=== PATIENT | female | born 1970 | race Caucasian/White ===

== ENCOUNTER 2017-05-17 09:26 | Inpatient (IN) | payer OTHER ==
[~2017-05-17] VITALS: Ht 157.5 cm; Wt 53.4 kg
[~2017-05-17 09:26] MED LIST: ATEN1TAB73 PO; Benztropine PO; CHOL1000 PO; METH10TA PO; METH5 PO; NICO21DI2 T-DERMAL; RISP1 PO
--- NOTE | 2017-05-17 09:32 | PD ---
HPI Chief Complaint: psychiatric symptoms Time Seen by Provider: 09:32 Travel History International Travel<30 days: No Contact w/Intl Traveler<30days: No History of Present Illness HPI 46-year-old female with history of bipolar disorder, is brought in under the Noble act, after threatening to kill herself with a knife earlier this morning. It is reported the patient has a history of methadone abuse, and is trying to wean herself off according to the Noble act note. Patient currently states that she is not suicidal but very anxious. She denies auditory or visual hallucinations. She denies alcohol or drug use. She does smoke 1/2-1 pack of cigarettes per day. Patient has no known drug allergies. PFSH Past Medical History Arthritis: No Asthma: No Autoimmune Disease: No Anxiety: No Depression: Yes Heart Rhythm Problems: No Cancer: No Cardiovascular Problems: No High Cholesterol: No Chemotherapy: No Chest Pain: No Congestive Heart Failure: No COPD: No Cerebrovascular Accident: No Diabetes: No Endocrine: No GERD: No Genitourinary: No Headaches: No Hiatal Hernia: No Immune Disorder: No Kidney Stones: No Musculoskeletal: No Neurologic: No Psychiatric: Yes (Depression/Bipolar) Reproductive: No Respiratory: No Migraines: No Radiation Therapy: No Renal Failure: No Seizures: No Sickle Cell Disease: No Sleep Apnea: No Thyroid Disease: No Ulcer: No Past Surgical History Abdominal Surgery: No AICD: No Arteriovenous Shunt: No Cardiac Surgery: No Ear Surgery: No Endocrine Surgery: No Eye Surgery: No Genitourinary Surgery: No Gynecologic Surgery: No Insulin Pump: No Joint Replacement: No Oral Surgery: No Pacemaker: No Thoracic Surgery: No Social History Alcohol Use: Yes Tobacco Use: Yes Substance Use: No Allergies-Medications (Allergen,Severity, Reaction): Coded Allergies: No Known Allergies (Verified Allergy, Unknown, 03/24/03) Reported Meds & Prescriptions Reported Meds & Active Scripts Active Gnp Vitamin D3 Extra Stre (Cholecalciferol) 1,000 Unit Tab 1,000 Units PO DAILY 15 Days [Benztropine] 1 MG Tab 1 Mg PO Q12HR PRN 15 Days Risperdal (Risperidone) 1 Mg Tab 2 Mg PO BID 15 Days Methadone (Methadone HCl) 10 Mg Tab 30 Mg PO DAILY 1 Days Order is to update med rec only. Pt in methadone program. Tapazole (Methimazole) 5 Mg Tab 5 Mg PO DAILY 15 Days Tenormin (Atenolol) 25 Mg Tab 25 Mg PO DAILY 15 Days Reported Nicotine Patch (Nicotine) 21 Mg/24 Hr Patch 21 Mg T-DERMAL DAILY Review of Systems Except as stated in HPI: all other systems reviewed are Neg General / Constitutional: No: Fever Eyes: No: Visual changes HENT: No: Headaches Cardiovascular: No: Chest Pain or Discomfort Respiratory: No: Shortness of Breath Gastrointestinal: No: Abdominal Pain Genitourinary: No: Dysuria Musculoskeletal: No: Pain Skin: No Rash Neurologic: No: Weakness Psychiatric: Positive: Anxiety, Suicidal Ideations, No: Depression, Homicidal Ideation Endocrine: No: Polydipsia Hematologic/Lymphatic: No: Easy Bruising Physical Exam Narrative GENERAL: Patient appears anxious but otherwise in no acute distress. SKIN: Warm and dry. Normal color. Normal turgor. HEAD: Atraumatic. Normocephalic. EYES: Pupils equal and round. No scleral icterus. No injection or drainage. ENT: No nasal bleeding or discharge. Mucous membranes pink and moist. Pharynx is clear. Airways patent NECK: Trachea midline. Supple CARDIOVASCULAR: Tachycardic rate and regular rhythm. RESPIRATORY: No accessory muscle use. Clear to auscultation. Breath sounds equal bilaterally. GASTROINTESTINAL: Abdomen soft, non-tender, nondistended. Hepatic and splenic margins not palpable. MUSCULOSKELETAL: Extremities without clubbing, cyanosis, or edema. No obvious deformities. NEUROLOGICAL: Awake and alert. No obvious cranial nerve deficits. Motor grossly within normal limits. Five out of 5 muscle strength in the arms and legs. Normal speech. PSYCHIATRIC: Appropriate mood and affect; insight and judgment normal. Data Data Last Documented VS Vital Signs Date Time Temp Pulse Resp B/P (MAP) Pulse Ox O2 Delivery O2 Flow Rate FiO2 05/17/17 09:37 98.2 118 22 117/71 (86) 98 Orders Orders Complete Blood Count With Diff (05/17/17 09:36) Comprehensive Metabolic Panel (05/17/17 09:36) Thyroid Stimulating Hormone (05/17/17 09:36) Urinalysis - C+S If Indicated (05/17/17 09:36) Ed Urine Pregnancytest Poc (05/17/17 09:36) Psych Screen (05/17/17 09:36) Drug Screen, Random Urine (05/17/17 09:36) Alcohol (Ethanol) (05/17/17 09:36) Lorazepam (Ativan) (05/17/17 09:45) Nicotine 21 Mg Patch.24 Hr (Habitrol 21 (05/17/17 09:45) Labs Laboratory Tests Test 3 09:57 White Blood Count 18.6 TH/MM3 Red Blood Count 4.39 MIL/MM3 Hemoglobin 14.5 GM/DL Hematocrit 41.6 % Mean Corpuscular Volume 94.8 FL Mean Corpuscular Hemoglobin 33.0 PG Mean Corpuscular Hemoglobin Concent 34.8 % Red Cell Distribution Width 14.2 % Platelet Count 282 TH/MM3 Mean Platelet Volume 8.3 FL Neutrophils (%) (Auto) 83.8 % Lymphocytes (%) (Auto) 11.7 % Monocytes (%) (Auto) 4.3 % Eosinophils (%) (Auto) 0.1 % Basophils (%) (Auto) 0.1 % Neutrophils # (Auto) 15.6 TH/MM3 Lymphocytes # (Auto) 2.2 TH/MM3 Monocytes # (Auto) 0.8 TH/MM3 Eosinophils # (Auto) 0.0 TH/MM3 Basophils # (Auto) 0.0 TH/MM3 CBC Comment DIFF FINAL Differential Comment Urine Color LIGHT-YELLOW Urine Turbidity CLEAR Urine pH 7.0 Urine Specific [place] 1.005 Urine Protein NEG mg/dL Urine Glucose (UA) NEG mg/dL Urine Ketones NEG mg/dL Urine Occult Blood TRACE Urine Nitrite NEG Urine Bilirubin NEG Urine Urobilinogen LESS THAN 2.0 MG/DL Urine Leukocyte Esterase TRACE Urine RBC 1 /hpf Urine WBC 2 /hpf Urine Squamous Epithelial Cells 6 /hpf Urine Bacteria RARE /hpf Urine Mucus FEW /lpf Microscopic Urinalysis Comment CULT NOT INDICATED Blood Urea Nitrogen 7 MG/DL Creatinine 0.58 MG/DL Random Glucose 75 MG/DL Total Protein 7.6 GM/DL Albumin 2.8 GM/DL Calcium Level 8.6 MG/DL Alkaline Phosphatase 72 U/L Aspartate Amino Transf (AST/SGOT) 18 U/L Alanine Aminotransferase (ALT/SGPT) 11 U/L Total Bilirubin 0.1 MG/DL Sodium Level 138 MEQ/L Potassium Level 4.0 MEQ/L Chloride Level 108 MEQ/L Carbon Dioxide Level 19.9 MEQ/L Anion Gap 10 MEQ/L Estimat Glomerular Filtration Rate 113 ML/MIN Thyroid Stimulating Hormone 3rd Gen 0.012 uIU/ML Urine Opiates Screen NEG Urine Barbiturates Screen NEG Urine Amphetamines Screen NEG Urine Benzodiazepines Screen NEG Urine Cocaine Screen NEG Urine Cannabinoids Screen NEG Ethyl Alcohol Level 39 MG/DL MDM Medical Decision Making Medical Screen Exam Complete: Yes Emergency Medical Condition: Yes Differential Diagnosis Noble act. Suicidal ideation. History of bipolar disorder. Narrative Course Psychiatric labs ordered as per protocol including urinary test. Patient is given 2 mg lorazepam p.o. Patient is given nicotine patch 21 mcg daily. CBC is remarkable for 18.6 leukocytosis. Chemistry unremarkable except for chloride of 108, and carbon dioxide of 19.9. Albumin is low at 2.8. TSH is 0.012. Toxicology is negative except for an alcohol of 39. Urinalysis is otherwise unremarkable. Patient is medically cleared for psychiatric evaluation. Condition: Stable Rainer Moses May 17, 2017 09:32
[2017-05-17 09:37] VITALS: BP 117/71; PULSE 118; RESP 22; TEMP 98.2; O2SAT 98
[2017-05-17] MEDS ORDERED: LORazepam 2 MG TAB PO ONE (09:45)
[2017-05-17] MEDS ORDERED: NICOTINE 21 MG/24 HR PATCH T-DERMAL ONE (09:45)
[2017-05-17 10:27] LABS: BACTERIA, URINE RARE /hpf; BILIRUBIN, URINE NEG (NEG); BLOOD, URINE TRACE (NEG); GLUCOSE,URINE NEG (NEG); KETONE, URINE NEG (NEG); MUCUS URINE FEW /lpf (OCC); NITRITE,URINE NEG (NEG); SQUAMOUS EPITHELIAL CELL URINE 6 /hpf (0-5); URINE COLOR LIGHT-YELLOW (YELLW/STRAW); URINE LEUKOCYTE ESTERASE TRACE (NEG)
[2017-05-17 10:37] LABS: AUTOMATED NEUTROPHIL # 15.6 TH/MM3 (1.8-7.7); BASOPHIL % 0.1 % (0.0-2.0); EOSINOPHIL % 0.1 % (0.0-4.0); HEMATOCRIT 41.6 % (35.0-46.0); HEMOGLOBIN 14.5 GM/DL (11.6-15.3); LYMPH % 11.7 % (9.0-44.0); LYMPHOCYTE # 2.2 TH/MM3 (1.0-4.8); MEAN CELL VOLUME 94.8 FL (80.0-100.0); MEAN CORPUSCULAR HGB CONC 34.8 % (32.0-36.0); MEAN PLATELET VOLUME 8.3 FL (7.0-11.0); MONO % 4.3 % (0.0-8.0); MONOCYTE # 0.8 TH/MM3 (0-0.9); NEUT % 83.8 % (16.0-70.0); PLATELET COUNT 282 TH/MM3 (150-450); RED BLOOD COUNT 4.39 MIL/MM3 (4.00-5.30); RED CELL DISTRIBUTION WIDTH 14.2 % (11.6-17.2); WHITE BLOOD COUNT 18.6 TH/MM3 (4.0-11.0)
[2017-05-17 11:01] LABS: ALBUMIN 2.8 GM/DL (3.4-5.0); AST (GOT) 18 U/L (15-37); BICARBONATE 19.9 MEQ/L (21.0-32.0); BLOOD UREA NITROGEN 7 MG/DL (7-18); CALCIUM 8.6 MG/DL (8.5-10.1); CHLORIDE 108 MEQ/L (98-107); CREATININE 0.58 MG/DL (0.50-1.00); GLOMERULAR FILTRATION RATE 113 ML/MIN (>89); GLUCOSE,RANDOM 75 MG/DL (74-106); SODIUM (NA) 138 MEQ/L (136-145)
[2017-05-17 11:10] LABS: ALKALINE PHOSPHATASE 72 U/L (45-117); ALT (GPT) 11 U/L (10-53); TOTAL BILIRUBIN ADULT 0.1 MG/DL (0.2-1.0); TOTAL PROTEIN 7.6 GM/DL (6.4-8.2)
[2017-05-17 12:26] VITALS: BP 100/61; PULSE 124; RESP 18; TEMP 98.2; O2SAT 98
[2017-05-17 19:25] VITALS: BP 102/61; PULSE 94; RESP 18; O2SAT 98
[2017-05-18 02:10] VITALS: BP 93/50; PULSE 88; RESP 16; O2SAT 96
[2017-05-18 06:30] VITALS: BP 104/54; PULSE 101; RESP 18; O2SAT 98
[2017-05-18 10:48] VITALS: BP 104/60; PULSE 100; RESP 18
[2017-05-18] MEDS ORDERED: METH5SOL11 PO (11:33)
[2017-05-18] MEDS ORDERED: ACETAMINOPHEN 325 MG TAB PO PRN (12:45)
[2017-05-18] MEDS ORDERED: ALUMINUM/MAGNESIUM/SIMETH 30 ML CUP PO PRN (12:45)
[2017-05-18] MEDS ORDERED: LORazepam 0.5 MG TAB PO PRN (12:45)
[2017-05-18] MEDS ORDERED: MAGNESIUM HYDROXIDE SUSP 30 ML CUP PO PRN (12:45)
[2017-05-18] MEDS ORDERED: LORazepam 2 MG/ML VIAL IM PRN ×2 (12:45)
--- NOTE | 2017-05-18 14:10 | HHI.HP ---
Provisional Diagnosis Admission Date May 18, 2017 at 12:38 [place] I. Bipolar disorder, depressive episode, opiate use disorder of methadone 7 mg [place] II. Deferred [place] III. No significant medical history Certification of Person's Competence To Provide Express and Informed Consent I have personally examined Fanny Campos , a person being served at [facility] on, May 18, 2017 13:57. Express and informed consent means consent voluntarily given in writing, by a competent person, after sufficient explanation and disclosure of the subject matter involved to enable the person to make a knowing and willful decision without any element of force, fraud, deceit, duress, or other form of constraint or coercion. This person is 18 years of age or older, is not now known to be incompetent to consent to treatment with a guardian advocate, and does not have a health care surrogate or proxy currently making medical treatment decisions. I have found this person to be one of the following: [] Competent to provide express and informed consent, as defined above, for voluntary admission to this facility and is competent to provide express and informed consent for treatment. He/she has the consistent capacity to make well reasoned, willful, and knowing decisions concerning his or her medical or mental health treatment. The person fully and consistently understands the purpose of the admission for examination/placement and is fully capable of personally exercising all rights assured [place] [] Incompetent to provide express and informed consent to voluntary admission, and this is incompetent to provide express and informed consent to treatment. The person must be transferred to involuntary status and a petition for a guardian advocate filed with the Circuit Court. [x] Refusing to provide express and informed consent to voluntary admission but is competent to provide express and informed consent for treatment. The person must be discharged or transferred to involuntary status. Form shall be completed within 24 hours of a person's arrival at the receiving facility and filed in the clinical record of each person: 1. Admitted on a voluntary basis 2. Permitted to provide express and informed consent to his/her own treatment 3. Allowed to transfer from involuntary to voluntary status 4. Prior to permitting a person to consent to his or her own treatment after having been previously found incompetent to consent to treatment. History of Present Illness Capacity: Has Capacity HPI The patient is a 46-year-old woman, domiciled with her parents , but , unemployed, with psychiatric history of bipolar disorder, 2 previous psychiatric hospitalizations, last hospitalization was here in [place] in 2017, documentation review, outpatient care in [facility], she is on Risperdal 2 mg twice a day, she also has history of opiate use disorder on maternal 7 mg, this dose was confirmed, previous suicidal attempts, no significant medical history, who was brought in under the Noble act, after threatening to kill herself with a knife earlier this morning. It is reported that her parents the patient has a history of methadone abuse, and is trying to wean herself off according to the Noble act note. On psychiatric evaluation today the patient is guarded, oddly related, she seems to be kind of internally preoccupied, she says that she has been very depressed, frustrated with her parents, but she will not elaborate about circumstances and reason for her frustration. She does says that she has been having persistent suicidal thoughts with a plan of hanging herself or stabbing herself. She reports that she has been using her methadone as prescribed and she denies being abusive. He denies the abuse of other drugs and alcohol. The patient reports decreased concentration, energy, poor sleep at night, and she denies suicidal ideation with the plan of hanging herself or stabbing herself. She denies visual and auditory hallucinations. There is no loosening of associations ideas of reference, disorganized speech or behavior at this moment. Review of Systems Constitutional: DENIES: Diaphoretic episodes, Fatigue, Fever, Weight gain, Weight loss, Chills, Dizziness, Change in appetite, Night Sweats Endocrine: DENIES: Abnorml menstrual pattern, Heat/cold intolerance, Polydipsia , Polyuria, Polyphagia Eyes: DENIES: Blurred vision, Diplopia, Eye inflammation, Eye pain, Vision loss , Photosensitivity, Double Vision Ears, nose, mouth, throat: DENIES: Tinnitus, Hearing loss, Vertigo, Nasal discharge, Oral lesions, Throat pain, Hoarseness, Ear Pain, Running Nose, Epistaxis, Sinus Pain, Toothache, Odynophagia Respiratory: DENIES: Apneas, Cough, Snoring, Wheezing, Hemoptysis, Sputum production, Shortness of breath Cardiovascular: DENIES: Chest pain, Palpitations, Syncope, Dyspnea on Exertion , PND, Lower Extremity Edema, Orthopnea, Claudication Gastrointestinal: DENIES: Abdominal pain, Black stools, Bloody stools, Constipation, Diarrhea, Nausea, Vomiting, Difficulty Swallowing, Anorexia Genitourinary: DENIES: Abnormal vaginal bleeding, Dysmenorrhea, Dyspareunia, Sexual dysfunction, Urinary frequency, Urinary incontinence, Urgency, Hematuria , Dysuria, Nocturia, Vaginal discharge Musculoskeletal: DENIES: Joint pain, Muscle aches, Stiffness, Joint Swelling, Back pain, Neck pain Integumentary: DENIES: Abnormal pigmentation, Pruritus, Rash, Nail changes, Breast masses, Breast skin changes, Nipple discharge Hematologic/lymphatic: DENIES: Bruising, Lymphadenopathy Immunologic/allergic: DENIES: Eczema, Urticaria Neurologic: DENIES: Abnormal gait, Headache, Localized weakness, Paresthesias, Seizures, Speech Problems, Tremor, Poor Balance Psychiatric: COMPLAINS OF: Depression, DENIES: Anxiety, Confusion, Mood changes , Hallucinations, Agitation, Suicidal Ideation, Homicidal Ideation Past Psych History Violence risk - self (6 mos) Elevated Substance Abuse History Drugs/Alcohol past 12 months Methadone 7 mg daily Past Family Social History Coded Allergies: No Known Allergies (Verified Allergy, Unknown, 03/24/03) Reported Medications Methadone Liq (Methadone Liq) 1 Mg/Ml Liqd, 7 MG PO DAILY, ML 0 Refills 05/18/17 Discontinued Reported Medications Nicotine Patch (Nicotine Patch) 21 Mg/24 Hr Patch, 21 MG T-DERMAL DAILY for Smoking Cessation, #30 PATCH 0 Refills 03/20/17 Discontinued Scripts Cholecalciferol (Gnp Vitamin D3 Extra Stre) 1,000 Unit Tab, 1000 UNITS PO DAILY for Vitamin D for 15 Days, TAB 1 Refill Prov:Ronnie Rincon MD 03/23/17 [Benztropine] 1 MG TAB No Conflict Check, 1 MG PO Q12HR Y for EXTRA PYRAMIDAL SYMPTOMS for 15 Days, 1 Refill Prov:Ronnie Rincon MD 03/23/17 Risperidone (Risperdal) 1 Mg Tab, 2 MG PO BID for Mental Health for 15 Days, # 60 TAB 1 Refill Prov:Ronnie Rincon MD 03/23/17 Methadone (Methadone) 10 Mg Tab, 30 MG PO DAILY for Methadone maintenance for 1 Day, #3 TAB 0 Refills Order is to update med rec only. Pt in methadone program. Prov:Ronnie Rincon MD 03/23/17 Methimazole (Tapazole) 5 Mg Tab, 5 MG PO DAILY for Thyroid for 15 Days, #15 TAB 1 Refill Prov:Ronnie Rincon MD 03/23/17 Atenolol (Tenormin) 25 Mg Tab, 25 MG PO DAILY for hyperthyroid for 15 Days, #15 TAB 1 Refill Prov:Ronnie Rincon MD 03/23/17 Current Medications Medications (Trade) Dose Ordered Sig/Dilcia Route Start Time Stop Time Status Last Admin (Methadone Liq) 7 mg DAILY PO 05/19/17 09:00 UNV (risperDAL) 1 mg Q12HR PO 05/18/17 12:45 UNV (Zoloft) 25 mg DAILY PO 05/18/17 12:45 UNV (Ativan) 1 mg Q6H PRN PO 05/18/17 12:45 UNV (Ativan Inj) 1 mg Q6H PRN IM 05/18/17 12:45 UNV (Ativan) 0.5 mg Q12H PRN PO 05/18/17 12:45 UNV (Ativan Inj) 0.5 mg Q12H PRN IM 05/18/17 12:45 UNV (Tylenol) 650 mg Q4H PRN PO 05/18/17 12:45 UNV (Milk Of Magnesia Liq) 30 ml DAILY PRN PO 05/18/17 12:45 UNV (Mag-Al Plus Susp Liq) 30 ml Q6H PRN PO 05/18/17 12:45 UNV (Habitrol 21 Mg Patch.24 Hr) 1 patch DAILY T-DERMAL 05/19/17 09:00 UNV Family Psych History No family psychiatric history Social History Patient is domiciled with her parents, unemployed, but , no kids, unemployed, her highest level of education is 10th grade Patient's Strengths (min. 2) Family support Physical Exam No tremors, no EPS, no psychomotor agitation or retardation Vital Signs Vital Signs Date Time Temp Pulse Resp B/P (MAP) Pulse Ox O2 Delivery O2 Flow Rate FiO2 05/18/17 10:48 100 18 104/60 (75) Room Air 05/18/17 06:30 98 05/17/17 12:26 98.2 Mental Status Examination Appearance: Appropriate Consciousness: Alert Orientation: x4 Motor Activity: Normal gait Speech: Unremarkable Language: Adequate Fund of Knowledge: Adequate Attention and Concentration: Adequate Memory: Unremarkable Mood: Sad Affect: Irritable, Sad Thought Process & Associations: Intact Thought Content: Appropriate Hallucination Type: None Delusion Type: None Suicidal Ideation: Yes Suicidal Plan: Yes Suicidal Intention: No Homicidal Ideation: No Homicidal Plan: No Homicidal Intention: No Insight: Poor Judgment: Poor Assessment & Plan Problem List: (1) Bipolar depression ICD Codes: F31.30 - Bipolar disorder, current episode depressed, mild or moderate severity, unspecified Assessment & Plan: On psychiatric evaluation today the patient is guarded, irritable, provisionally cooperative, she does reports symptoms of depression, anhedonia, hopelessness, helplessness, poor sleep, concentration and energy, and persistent suicidal ideation with a plan of stabbing herself. The patient was recently found with a knife in his hands by her parents and was immediately sent to the hospital. Due to her previous psychiatric history, previous suicidal attempts, the patient is an elevated risk of danger to self and she denies psychiatric admission for stabilization. Transfer patient to psychiatric unit. We'll start Zoloft 25 mg for depression, restart her Risperdal 1 mg twice a day, methadone 7 mg daily. Brief supportive psychotherapy, psychoeducation and motivation provided. 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 Individual and group therapy, to coordinating a safe discharge. Will consult psychiatry for second opinion. Assessment & Plan Estimated LOS: Vj Reeves MD May 18, 2017 14:10
[2017-05-18] MEDS: risperiDONE 1 MG TAB PO SCH ×2 (14:30→21:08)
[2017-05-18] MEDS: SERTRALINE HCL 50 MG TAB PO SCH (14:30)
[2017-05-18 15:35] VITALS: BP 119/83; PULSE 93; RESP 16; TEMP 97.5
[2017-05-18] MEDS: LORazepam 1 MG TAB PO PRN (21:08)
[2017-05-19 05:29] VITALS: BP 100/55; PULSE 99; RESP 18; TEMP 97.4; O2SAT 97
[2017-05-19] MEDS: risperiDONE 1 MG TAB PO SCH ×2 (09:10→21:58)
[2017-05-19] MEDS: SERTRALINE HCL 50 MG TAB PO SCH (09:11)
[2017-05-19] MEDS: NICOTINE 21 MG/24 HR PATCH T-DERMAL SCH (09:11)
[2017-05-19 09:57] LABS: BICARBONATE 25.8 MEQ/L (21.0-32.0); BLOOD UREA NITROGEN 12 MG/DL (7-18); CALCIUM 9.1 MG/DL (8.5-10.1); CHLORIDE 103 MEQ/L (98-107); CREATININE 0.66 MG/DL (0.50-1.00); GLOMERULAR FILTRATION RATE 97 ML/MIN (>89); GLUCOSE,RANDOM 101 MG/DL (74-106); SODIUM (NA) 138 MEQ/L (136-145)
[2017-05-19 09:58] LABS: CHOLESTEROL 185 MG/DL (120-200); TRIGLYCERIDES 84 MG/DL (42-150)
[2017-05-19 10:01] LABS: CHOLESTEROL/ HDL RATIO 3.36 RATIO; LDL CHOLESTEROL 113 MG/DL (0-99)
[2017-05-19] MEDS: METHADONE HCL 10 MG/10 ML ORAL SOLUTION PO SCH (10:21)
[2017-05-19 11:56] LABS: HEMOGLOBIN A1C 5.9 % (4.3-6.0)
--- NOTE | 2017-05-19 13:16 | HHI.PYPN ---
Subjective Remarks This a request for second opinion. Admission note was reviewed and I agree with its contents. Patient is pleasant and cooperative with exam. Insight is for concerning her admission. She now minimizes her suicidal ideation. Today she denies suicidal homicidal ideation intent or plan. Affect is quite anxious. His compliant with her medications and tolerating them well Mental Status Examination Appearance: Appropriate Consciousness: Alert Orientation: x4 Motor Activity: Normal gait Speech: Unremarkable Language: Adequate Fund of Knowledge: Adequate Attention and Concentration: Adequate Memory: Unremarkable Mood: Sad Affect: Sad, Blunt Thought Process & Associations: Intact Thought Content: Appropriate Hallucination Type: None Delusion Type: None Suicidal Ideation: No Suicidal Plan: No Suicidal Intention: No Homicidal Ideation: No Homicidal Plan: No Homicidal Intention: No Insight: Poor Judgment: Poor Results Labs Test 05/19/17 08:15 Blood Urea Nitrogen 12 MG/DL Creatinine 0.66 MG/DL Random Glucose 101 MG/DL Calcium Level 9.1 MG/DL Sodium Level 138 MEQ/L Potassium Level 3.8 MEQ/L Chloride Level 103 MEQ/L Carbon Dioxide Level 25.8 MEQ/L Anion Gap 9 MEQ/L Estimat Glomerular Filtration Rate 97 ML/MIN Hemoglobin A1c 5.9 % Triglycerides Level 84 MG/DL Cholesterol Level 185 MG/DL LDL Cholesterol 113 MG/DL HDL Cholesterol 55.0 MG/DL Cholesterol/HDL Ratio 3.36 RATIO Vitals/IOs Vital Signs Date Time Temp Pulse Resp B/P (MAP) Pulse Ox O2 Delivery O2 Flow Rate FiO2 05/19/17 05:29 97.4 99 18 100/55 (70) 97 05/18/17 10:48 Room Air Assessment & Plan Problem List: (1) Bipolar depression ICD Codes: F31.30 - Bipolar disorder, current episode depressed, mild or moderate severity, unspecified Assessment & Plan I reviewed first opinion to continue petition. Criteria include suicidal ideation Justification for Cont. Inpt. Patient would decompensate in a less restrictive setting Ramone Henning DO May 19, 2017 13:16
[2017-05-19 18:19] VITALS: BP 103/64; PULSE 92; RESP 20; TEMP 97.9; O2SAT 99
[2017-05-19] MEDS: REMOVE OLD NICODERM (NICOTINE) PATCH T-DERMAL SCH (21:00)
[2017-05-19] MEDS: LORazepam 1 MG TAB PO PRN (21:58)
[2017-05-20 04:54] VITALS: BP 106/72; PULSE 94; RESP 16; TEMP 97.6; O2SAT 98
[2017-05-20] MEDS: risperiDONE 1 MG TAB PO SCH ×2 (08:36→21:18)
[2017-05-20] MEDS: METHADONE HCL 10 MG/10 ML ORAL SOLUTION PO SCH (08:39)
[2017-05-20] MEDS: SERTRALINE HCL 50 MG TAB PO SCH (08:42)
[2017-05-20] MEDS: NICOTINE 21 MG/24 HR PATCH T-DERMAL SCH (08:43)
--- NOTE | 2017-05-20 11:21 | HHI.PYPN ---
Subjective Remarks Patient was seen and case discussed with nursing. Patient continues to minimize her reasons for admission. She is perseverant on discharge and is a blunted affect. Denies suicidal or homicidal ideation intent or plan. Largely seclusive to self. Mental Status Examination Appearance: Appropriate Consciousness: Alert Orientation: x4 Motor Activity: Normal gait Speech: Unremarkable Language: Adequate Fund of Knowledge: Adequate Attention and Concentration: Adequate Memory: Unremarkable Mood: Sad Affect: Sad, Blunt Thought Process & Associations: Intact Thought Content: Appropriate Hallucination Type: None Delusion Type: None Suicidal Ideation: No Suicidal Plan: No Suicidal Intention: No Homicidal Ideation: No Homicidal Plan: No Homicidal Intention: No Insight: Poor Judgment: Poor Results Vitals/IOs Vital Signs Date Time Temp Pulse Resp B/P (MAP) Pulse Ox O2 Delivery O2 Flow Rate FiO2 05/20/17 09:59 16 05/20/17 04:54 97.6 94 106/72 (83) 98 05/18/17 10:48 Room Air Assessment & Plan Problem List: (1) Bipolar depression ICD Codes: F31.30 - Bipolar disorder, current episode depressed, mild or moderate severity, unspecified Assessment & Plan Continue current treatment plan Justification for Cont. Inpt. Patient will decompensate in a less restrictive setting Ramone Henning DO May 20, 2017 11:21
[2017-05-20 16:46] VITALS: BP 120/96; PULSE 88; RESP 18; TEMP 98; O2SAT 98
[2017-05-20] MEDS: REMOVE OLD NICODERM (NICOTINE) PATCH T-DERMAL SCH (21:00)
[2017-05-20] MEDS: LORazepam 1 MG TAB PO PRN (21:18)
[2017-05-21 05:32] VITALS: BP 108/66; PULSE 72; RESP 16; TEMP 97.6; O2SAT 97
[2017-05-21] MEDS: SERTRALINE HCL 50 MG TAB PO SCH (08:26)
[2017-05-21] MEDS: risperiDONE 1 MG TAB PO SCH ×2 (08:26→21:18)
[2017-05-21] MEDS: METHADONE HCL 10 MG/10 ML ORAL SOLUTION PO SCH (08:26)
[2017-05-21] MEDS: NICOTINE 21 MG/24 HR PATCH T-DERMAL SCH (08:27)
--- NOTE | 2017-05-21 13:20 | HHI.PYPN ---
Subjective Remarks Patient seen and examined with nurse. Chart reviewed. Case discussed with nursing staff. No behavioral issues noted. Case discussed with counselor who will obtain collateral information from the patient's parents. On my examination today, the patient denies any ongoing suicidal ideation. Of her presenting suicidal threats she says "I was just having a depressed day." Mood is improved presently. Denies AVH. No delusional material elicited. Denies side effects from medications. No physical complaints. Hopeful for discharge soon. Review of Systems Except as stated in HPI: all other systems reviewed are Neg Mental Status Examination Appearance: Appropriate Consciousness: Alert Orientation: x4 Motor Activity: Normal gait, Other (no motor abnormalities noted. No signs of withdrawal noted.) Speech: Unremarkable Language: Adequate Fund of Knowledge: Adequate Attention and Concentration: Adequate Memory: Unremarkable Mood: Appropriate Affect: Blunt Thought Process & Associations: Intact, Logical, Linear Thought Content: Appropriate Hallucination Type: None Delusion Type: None Suicidal Ideation: No Suicidal Plan: No Suicidal Intention: No Homicidal Ideation: No Homicidal Plan: No Homicidal Intention: No Mental Status Exam Remarks Insight and judgment are fair at best Results Labs Labs reviewed. Leukocytosis noted. Low TSH noted. Vitals/IOs Vital Signs Date Time Temp Pulse Resp B/P (MAP) Pulse Ox O2 Delivery O2 Flow Rate FiO2 05/21/17 05:32 97.6 72 16 108/66 (80) 97 05/18/17 10:48 Room Air Assessment & Plan Problem List: (1) Adjustment disorder with depressed mood ICD Codes: F43.21 - Adjustment disorder with depressed mood (2) Opiate dependence ICD Codes: F11.20 - Opioid dependence, uncomplicated Assessment & Plan Continue Risperdal and Zoloft as ordered. Continue methadone as ordered. Check free T4 and CBC to follow up abnormal TSH and leukocytosis, respectively. Consult hospitalist for further evaluation and management of these issues. Continue to monitor on the inpatient unit. Continue other medications and care as ordered. Justification for Cont. Inpt. Monitoring for impairment in safety. Complicating conditions. Discharge Planning Pending outcome of observation. Case discussed with counselor. Request HC Surrog/Guard Advoc?: No Ronnie Rincon MD May 21, 2017 13:20
[2017-05-21 17:44] VITALS: BP 100/58; PULSE 79; RESP 16; TEMP 97.7; O2SAT 97
[2017-05-21] MEDS: REMOVE OLD NICODERM (NICOTINE) PATCH T-DERMAL SCH (21:00)
[2017-05-21] MEDS: LORazepam 1 MG TAB PO PRN (21:18)
[2017-05-22 06:01] VITALS: BP 95/63; PULSE 79; RESP 16; TEMP 97.6
[2017-05-22] MEDS: NICOTINE 21 MG/24 HR PATCH T-DERMAL SCH (08:19)
[2017-05-22] MEDS: SERTRALINE HCL 50 MG TAB PO SCH (08:19)
[2017-05-22] MEDS: METHADONE HCL 10 MG/10 ML ORAL SOLUTION PO SCH (08:19)
[2017-05-22] MEDS: risperiDONE 1 MG TAB PO SCH (08:19)
[2017-05-22 08:52] LABS: AUTOMATED NEUTROPHIL # 4.9 TH/MM3 (1.8-7.7); BASOPHIL % 0.4 % (0.0-2.0); EOSINOPHIL # 0.1 TH/MM3 (0-0.4); EOSINOPHIL % 0.9 % (0.0-4.0); HEMATOCRIT 41.1 % (35.0-46.0); HEMOGLOBIN 13.9 GM/DL (11.6-15.3); LYMPH % 29.2 % (9.0-44.0); LYMPHOCYTE # 2.3 TH/MM3 (1.0-4.8); MEAN CELL VOLUME 93.1 FL (80.0-100.0); MEAN CORPUSCULAR HEMOGLOBIN 31.6 PG (27.0-34.0); MEAN CORPUSCULAR HGB CONC 33.9 % (32.0-36.0); MEAN PLATELET VOLUME 9.2 FL (7.0-11.0); MONO % 5.7 % (0.0-8.0); MONOCYTE # 0.4 TH/MM3 (0-0.9); NEUT % 63.8 % (16.0-70.0); PLATELET COUNT 280 TH/MM3 (150-450); RED BLOOD COUNT 4.41 MIL/MM3 (4.00-5.30); RED CELL DISTRIBUTION WIDTH 13.7 % (11.6-17.2); WHITE BLOOD COUNT 7.7 TH/MM3 (4.0-11.0)
[2017-05-22] MEDS ORDERED: ZOLO50TA PO (11:19)
[2017-05-22] MEDS ORDERED: RISP1 PO (11:19)
--- NOTE | 2017-05-22 11:19 | HHI.DS ---
Psychiatry Discharge Summary Inpatient Psychiatric care?: Yes Advance Directive: No Reason Not Provided: Due to Patient Condition Mental Health AdvanceDirective: No Health Care Proxy: No Admission Admission Date May 18, 2017 at 12:38 Admission Diagnosis: (1) Bipolar depression ICD Code: F31.30 - Bipolar disorder, current episode depressed, mild or moderate severity, unspecified Brief History The patient is a 46-year-old woman, domiciled with her parents , but , unemployed, with psychiatric history of bipolar disorder, 2 previous psychiatric hospitalizations, last hospitalization was here in [place] in 2017, documentation review, outpatient care in [facility], she is on Risperdal 2 mg twice a day, she also has history of opiate use disorder on maternal 7 mg, this dose was confirmed, previous suicidal attempts, no significant medical history, who was brought in under the Noble act, after threatening to kill herself with a knife earlier this morning. It is reported that her parents the patient has a history of methadone abuse, and is trying to wean herself off according to the Noble act note. On psychiatric evaluation today the patient is guarded, oddly related, she seems to be kind of internally preoccupied, she says that she has been very depressed, frustrated with her parents, but she will not elaborate about circumstances and reason for her frustration. She does says that she has been having persistent suicidal thoughts with a plan of hanging herself or stabbing herself. She reports that she has been using her methadone as prescribed and she denies being abusive. He denies the abuse of other drugs and alcohol. The patient reports decreased concentration, energy, poor sleep at night, and she denies suicidal ideation with the plan of hanging herself or stabbing herself. She denies visual and auditory hallucinations. There is no loosening of associations ideas of reference, disorganized speech or behavior at this moment. Tobacco Use In Past 30 Days: 5 or More Cigarettes/Day Alcohol Use: Never Hospital Course Patient was admitted to a locked, inpatient psychiatric unit. General medical consultation was obtained. Appropriate precautions were in place throughout patient's hospital stay. Patient was seen and examined on the unit by psychiatry and also visited by counselor. Psychotropic medications were adjusted. Patient tolerated medications well without side effects. Patient had improvement in presenting psychiatric symptomatology during the course of hospital stay. There was no evidence of any suicidality or homicidality on the inpatient unit. Patient remained in good behavioral control. On the day of discharge: Patient seen and examined with nurse. Chart reviewed. Case discussed with nursing staff. No behavioral issues noted overnight. Case discussed in treatment team. Counselor has reached out the patient's parents who reportedly have no safety concerns about patient being discharged home today. On my examination today, the patient is requesting discharge from the inpatient psychiatric unit today. She denies any suicidal or homicidal ideation , intent or plan on direct questioning and contracts for safety. She is in good spirits and I can elicit no depressive or hypomanic/manic symptoms presently. She denies any audiovisual hallucinations. I can elicit no delusional beliefs. There is no evidence of any impairment in reality construction. She denies side effects from medications. I did offer the patient long-acting injectable antipsychotic but she has declined. She has no physical complaints. Suicide and violence risk assessment on day of discharge both suggest lower imminent risk from a mental illness as defined under the Noble act, and the patient's level of function is adequate for outpatient care. The patient no longer meets criteria for involuntary psychiatric hospitalization. She is requesting discharge from the inpatient psychiatric unit today, and I have no basis to retain her over her objection. Patient will be discharged home today with psychiatric follow-up as arranged by counselor. Patient is also to follow-up with primary care. I have counseled the patient to abstain from substances of abuse and continue chemical dependency treatment on an outpatient basis. I have counseled the patient regarding warning signs for need to return to the psychiatric emergency room as part of a general safety plan. Results Blood Pressure 95 / 63 Vital Signs Date Time Temp Pulse Resp B/P (MAP) Pulse Ox O2 Delivery O2 Flow Rate FiO2 05/22/17 06:01 97.6 79 16 95/63 (74) 05/21/17 17:44 97 05/18/17 10:48 Room Air Laboratory Tests Test 05/22/17 08:05 05/22/17 08:15 Laboratory Results Test 05/19/17 08:15 Cholesterol Level 185 MG/DL (120-200) HDL Cholesterol 55.0 MG/DL (40.0-60.0) Hemoglobin A1c 5.9 % (4.3-6.0) LDL Cholesterol 113 MG/DL (0-99) Triglycerides Level 84 MG/DL (42-150) Summary of Major Lab Results Free T4 wnl. Summary of Procedures None done Imaging None done Pending results at discharge: No Medications # of Antipsychotic meds at D/C: 1 Approp Antipsych med options 1 - Minimum of three failed multiple trials of monotherapy. 2 - Documented plan to taper to monotherapy due to previous use of multiple meds OR cross-taper in progress at D/C. 3 - Documentation of augmentation of Clozapine. 4 - Justification other than those listed in allowable values 1-3, document here : Discharge Discharge Date: May 22, 2017 Discharge Diagnosis: (1) Adjustment disorder with depressed mood Diagnosis: Principal (resolved) ICD Code: F43.21 - Adjustment disorder with depressed mood (2) Opiate dependence Diagnosis: Secondary ICD Code: F11.20 - Opioid dependence, uncomplicated Pt Condition on Discharge: Stable Discharge Disposition: Discharge Home Discharge Instructions Diet Instructions: As Tolerated, No Restrictions Activities you can perform: Weight Bearing as Christofer Scheduled Appointment: Ross Chen Appointment Date: Jun 07, 2017 Appointment Time: 1:30 p.m. New Medications: Risperidone (Risperdal) 1 Mg Tab 1 MG PO Q12HR for Mental Health for 10 Days, TAB 2 Refills Sertraline (Zoloft) 50 Mg Tab 25 MG PO DAILY for Mental Health for 10 Days, #5 TAB 2 Refills Continued Medications: Methadone Liq (Methadone Liq) 1 Mg/Ml Liqd 7 MG PO DAILY, ML 0 Refills Discharge Time <= 30 minutes Mental Status Examination Appearance: Appropriate Consciousness: Alert Orientation: x4 Motor Activity: Normal gait, Other (no signs of withdrawal noted. No motor abnormalities noted.) Speech: Unremarkable Language: Adequate Fund of Knowledge: Adequate Attention and Concentration: Adequate Memory: Unremarkable Mood: Appropriate Affect: Appropriate Thought Process & Associations: Intact, Logical, Goal directed, Linear Thought Content: Appropriate Hallucination Type: None Delusion Type: None Suicidal Ideation: No Suicidal Plan: No Suicidal Intention: No Homicidal Ideation: No Homicidal Plan: No Homicidal Intention: No Mental Status Exam Remarks Insight and judgment are fair. Discharge/Advance Care Plan Health Problems: (1) Adjustment disorder with depressed mood (2) Opiate dependence Goals to promote your health * To prevent worsening of your condition and complications * To maintain your health at the optimal level Directions to meet your goals Take your medications as prescribed Follow your dietary instruction Follow activity as directed Keep your appointments as scheduled Take your immunizations and boosters as scheduled If your symptoms worsen call your PCP, if no PCP go to Urgent Care Center or Emergency Room For 09/10 questions related to your inpatient stay or results of tests pending at discharge, please contact Dr. Ronnie Rincon at Smoking is Dangerous to Your Health. Avoid second hand smoking Ronnie Rincon MD May 22, 2017 11:19
--- NOTE | 2017-05-22 14:31 | PD.CONS ---
HPI Service [facility] Consult Requested By Dr Carroll Reason for Consult Leukocytosis, low TSH Primary Care Physician Ronnie Negrete M.D. Diagnoses: History of Present Illness This is a 46-year-old female with history of bipolar disorder with previous venous pulsations as per medical records, history of previous suicidal attempts , no significant medical history brought in and therapeutic erect after threatening to kill herself with a knife earlier the morning of the day of admission. As per psychiatry recommendations the patient has history of methadone abuse and is trying to wean herself off according to the Noble act note. The patient denies any symptoms of hyperthyroidism. Denies palpitations , diarrhea, diaphoresis, tremors. Patient also denies constipation, chest pain or shortness of breath. Patient is a febrile. Review of Systems As per history of present illness, other systems reviewed them and negative. Past Family Social History Allergies: Coded Allergies: No Known Allergies (Verified Allergy, Unknown, 03/24/03) Past Medical History Hyperthyroidism. Past Surgical History Denies Reported Medications Reported Meds & Active Scripts Active Risperdal (Risperidone) 1 Mg Tab 1 Mg PO Q12HR 10 Days Zoloft (Sertraline HCl) 50 Mg Tab 25 Mg PO DAILY 10 Days Reported Methadone Liq (Methadone HCl) 1 Mg/Ml Liqd 7 Mg PO DAILY Active Ordered Medications Current Medications Medications (Trade) Dose Ordered Sig/Dilcia Route Start Time Stop Time Status Last Admin (Methadone Liq) 7 mg DAILY PO 05/19/17 09:00 05/22/17 08:19 (risperDAL) 1 mg Q12HR PO 05/18/17 14:30 05/22/17 08:19 (Zoloft) 25 mg DAILY PO 05/18/17 14:30 05/22/17 08:19 (Ativan) 1 mg Q6H PRN PO 05/18/17 12:45 05/21/17 21:18 (Ativan Inj) 1 mg Q6H PRN IM 05/18/17 12:45 (Tylenol) 650 mg Q4H PRN PO 05/18/17 12:45 (Milk Of Magnesia Liq) 30 ml DAILY PRN PO 05/18/17 12:45 (Mag-Al Plus Susp Liq) 30 ml Q6H PRN PO 05/18/17 12:45 (Habitrol 21 Mg Patch.24 Hr) 1 patch DAILY T-DERMAL 05/19/17 09:00 05/22/17 08:19 Miscellaneous Information 1 HS T-DERMAL 05/19/17 21:00 05/21/17 21:00 Family History Denies family history of thyroid problems. Also denies family history of heart disease or diabetes mellitus. Social History Smokes 1 blood per day. Has done it for more than 10 years. Denies alcohol use. Denies illicit drug use. The patient is and has no children. Physical Exam Vital Signs Vital Signs Date Time Temp Pulse Resp B/P (MAP) Pulse Ox O2 Delivery O2 Flow Rate FiO2 05/22/17 06:01 97.6 79 16 95/63 (74) 05/21/17 17:44 97.7 79 16 100/58 (72) 97 Physical Exam GENERAL: This is a well-nourished, well-developed patient, in no apparent distress. SKIN: No rashes, ecchymoses or lesions. Cool and dry. HEAD: Atraumatic. Normocephalic. No temporal or scalp tenderness. EYES: Pupils equal round and reactive. Extraocular motions intact. No scleral icterus. No injection or drainage. ENT: Nose without bleeding, purulent drainage or septal hematoma. Throat without erythema, tonsillar hypertrophy or exudate. Uvula midline. Airway patent. NECK: Trachea midline. No JVD or lymphadenopathy. Supple, nontender, no meningeal signs. CARDIOVASCULAR: Regular rate and rhythm without murmurs, gallops, or rubs. RESPIRATORY: Clear to auscultation. Breath sounds equal bilaterally. No wheezes , rales, or rhonchi. GASTROINTESTINAL: Abdomen soft, non-tender, nondistended. No hepato-splenomegaly , or palpable masses. No guarding. MUSCULOSKELETAL: Extremities without clubbing, cyanosis, or edema. No joint tenderness, effusion, or edema noted. No calf tenderness. Negative Homans sign bilaterally. NEUROLOGICAL: Awake and alert. Cranial nerves II through XII intact. Motor and sensory grossly within normal limits. Five out of 5 muscle strength in all muscle groups. Normal speech. Laboratory Laboratory Tests Test 05/22/17 08:05 05/22/17 08:15 White Blood Count 7.7 Red Blood Count 4.41 Hemoglobin 13.9 Hematocrit 41.1 Mean Corpuscular Volume 93.1 Mean Corpuscular Hemoglobin 31.6 Mean Corpuscular Hemoglobin Concent 33.9 Red Cell Distribution Width 13.7 Platelet Count 280 Mean Platelet Volume 9.2 Neutrophils (%) (Auto) 63.8 Lymphocytes (%) (Auto) 29.2 Monocytes (%) (Auto) 5.7 Eosinophils (%) (Auto) 0.9 Basophils (%) (Auto) 0.4 Neutrophils # (Auto) 4.9 Lymphocytes # (Auto) 2.3 Monocytes # (Auto) 0.4 Eosinophils # (Auto) 0.1 Basophils # (Auto) 0.0 CBC Comment DIFF FINAL Differential Comment Result Diagram: 05/22/17 0805 05/19/17 0815 Imaging Current Medications Medications (Trade) Dose Ordered Sig/Dilcia Route Start Time Stop Time Status Last Admin (Methadone Liq) 7 mg DAILY PO 05/19/17 09:00 05/22/17 08:19 (risperDAL) 1 mg Q12HR PO 05/18/17 14:30 05/22/17 08:19 (Zoloft) 25 mg DAILY PO 05/18/17 14:30 05/22/17 08:19 (Ativan) 1 mg Q6H PRN PO 05/18/17 12:45 05/21/17 21:18 (Ativan Inj) 1 mg Q6H PRN IM 05/18/17 12:45 (Tylenol) 650 mg Q4H PRN PO 05/18/17 12:45 (Milk Of Magnesia Liq) 30 ml DAILY PRN PO 05/18/17 12:45 (Mag-Al Plus Susp Liq) 30 ml Q6H PRN PO 05/18/17 12:45 (Habitrol 21 Mg Patch.24 Hr) 1 patch DAILY T-DERMAL 05/19/17 09:00 05/22/17 08:19 Miscellaneous Information 1 HS T-DERMAL 05/19/17 21:00 05/21/17 21:00 Assessment and Plan Problem List: (1) Adjustment disorder with depressed mood ICD Code: F43.21 - Adjustment disorder with depressed mood Plan: Management as per psychiatry. Patient currently on Risperdal, Zoloft. Patient has been cleared to be discharged by psychiatry. (2) Opiate dependence ICD Code: F11.20 - Opioid dependence, uncomplicated Plan: Mometasone. Continue. (3) Hyperthyroidism ICD Code: E05.90 - Thyrotoxicosis, unspecified without thyrotoxic crisis or storm Status: Chronic Plan: The patient states hypothyroidism was diagnosed 4 months ago. Continue methimazole. The patient has a low TSH because she is currently on treatment with methimazole. The patient may be discharged and follow-up as an outpatient with analysis specialist. (4) Leukocytosis ICD Code: D72.829 - Elevated white blood cell count, unspecified Status: Resolved Plan: WBC on presentation 18.6 on 05/17. Likely related to stress. Repeat CBC on 05/22/17 shows a normal white blood cell count. There are no fevers or signs of infection. (5) Low thyroid stimulating hormone (TSH) level ICD Code: R94.6 - Abnormal results of thyroid function studies Plan: Low TSH likely secondary to hyperthyroidism and current treatment with methimazole. Free T4 normal. The patient may be discharged and follow-up with endocrinology as an outpatient. Continue methimazole upon discharge. Assessment and Plan DVT prophylaxis: Ambulation. Code Status Full code Discussed Condition With Patient, RN. Problem Qualifiers (1) Leukocytosis: Qualified Codes: D72.829 - Elevated white blood cell count, unspecified Chay Amin MD May 22, 2017 14:31
== END 2017-05-22 15:35 | disposition home or self-care (01) | DRG 885 ==
LOC: NEPD 09:26 → NEDA 05-18 12:38 → H260 05-18 14:30
PROVIDERS: ADMIT Psychiatry & Neurology Psychiatry; ATTEND Psychiatry & Neurology Psychiatry
DX: F31.30 Bipolar disorder, current episode depressed, mild or moderate severity, unspecified (principal); R45.851 Suicidal ideations; F11.20 Opioid dependence, uncomplicated; F43.21 Adjustment disorder with depressed mood; F17.200 Nicotine dependence, unspecified, uncomplicated; D72.829 Elevated white blood cell count, unspecified; E03.9 Hypothyroidism, unspecified
CPT/HCPCS: 80048; 80053; 80061; 80307; 81001; 83036; 84439; 84443; 84703; 85025

== ENCOUNTER 2017-06-07 14:11 | Emergency (ER) | payer OTHER ==
[~2017-06-07] VITALS: Ht 157.5 cm; Wt 55.0 kg
[~2017-06-07 14:11] MED LIST changes: -ATEN1TAB73 PO; -Benztropine PO; -CHOL1000 PO; -METH10TA PO; -METH5 PO; +METH5SOL11 PO; -NICO21DI2 T-DERMAL; +ZOLO50TA PO
[2017-06-07 15:00] VITALS: BP 113/70; PULSE 120; RESP 16; TEMP 98.2; O2SAT 98
[2017-06-07] MEDS ORDERED: HYDR-3133 PO (15:40)
[2017-06-07] MEDS ORDERED: [UNRECOGNIZED DRUG - REMARK] (15:40)
[2017-06-07] MEDS ORDERED: hydrOXYzine PAMOATE 25 MG CAP PO ONE (15:45)
[2017-06-07] MEDS ORDERED: cloNIDine HCL 0.1 MG TAB PO ONE (15:45)
--- NOTE | 2017-06-07 15:45 | PD ---
HPI Chief Complaint: Psychiatric Symptoms Time Seen by Provider: 15:09 Travel History International Travel<30 days: No Contact w/Intl Traveler<30days: No Traveled to known affect area: No History of Present Illness HPI 46-year-old female presents voluntarily for suicidal ideation. Patient states history of methadone use for history of IV drug abuse. Patient states she has been off her methadone for the last 3 days and is having withdrawal symptoms. This is causing her to feel more anxious and suicidal. She denies any other significant medical issues. She has no nausea, vomiting, or significant abdominal pain currently. She is noted to be tachycardic on her vital signs. She has no known drug allergies. PFSH Past Medical History Arthritis: No Asthma: No Autoimmune Disease: No Bipolar Disorder: Yes Anxiety: Yes Depression: Yes Heart Rhythm Problems: No Cancer: No Cardiovascular Problems: No High Cholesterol: No Chemotherapy: No Chest Pain: No Congestive Heart Failure: No COPD: No Cerebrovascular Accident: No Diabetes: No Endocrine: Yes GERD: No Genitourinary: No Headaches: No Hiatal Hernia: No Hypertension: Yes (PT DENIES ) Immune Disorder: No Kidney Stones: No Musculoskeletal: No Neurologic: No Psychiatric: Yes Reproductive: No Respiratory: No Migraines: No Radiation Therapy: No Renal Failure: No Seizures: No Sickle Cell Disease: No Sleep Apnea: No Thyroid Disease: Yes (hyper thyroid nodules on thyroid) Ulcer: No ?: Unknown Past Surgical History Abdominal Surgery: No AICD: No Arteriovenous Shunt: No Cardiac Surgery: No Ear Surgery: No Endocrine Surgery: No Eye Surgery: No Genitourinary Surgery: No Gynecologic Surgery: No Insulin Pump: No Joint Replacement: No Oral Surgery: No Pacemaker: No Thoracic Surgery: No Social History Alcohol Use: Yes Tobacco Use: Yes Substance Use: Yes Allergies-Medications (Allergen,Severity, Reaction): Coded Allergies: No Known Allergies (Verified Allergy, Unknown, 03/24/03) Reported Meds & Prescriptions Reported Meds & Active Scripts Active Zoloft (Sertraline HCl) 50 Mg Tab 25 Mg PO DAILY 10 Days Reported ["Thyroid Med"] Hydroxyzine HCl 25 Mg Tab 25 Mg PO BID Methadone Liq (Methadone HCl) 1 Mg/Ml Liqd 7 Mg PO DAILY Review of Systems Except as stated in HPI: all other systems reviewed are Neg General / Constitutional: No: Fever Eyes: No: Visual changes HENT: No: Headaches Cardiovascular: Positive: Tachycardia, No: Chest Pain or Discomfort Respiratory: No: Cough, Shortness of Breath, Wheezing Gastrointestinal: No: Abdominal Pain Genitourinary: No: Dysuria Musculoskeletal: No: Pain Skin: No Rash Neurologic: No: Weakness Psychiatric: No: Depression Endocrine: No: Polydipsia Hematologic/Lymphatic: No: Easy Bruising Physical Exam Narrative GENERAL: Patient appears mildly anxious but otherwise in no acute distress. SKIN: Warm and dry. Normal color. Normal turgor. HEAD: Atraumatic. Normocephalic. EYES: Pupils equal and round. No scleral icterus. No injection or drainage. ENT: No nasal bleeding or discharge. Mucous membranes pink and moist. NECK: Trachea midline. No JVD. CARDIOVASCULAR: Tachycardic rate and normal rhythm. RESPIRATORY: No accessory muscle use. Clear to auscultation. Breath sounds equal bilaterally. GASTROINTESTINAL: Abdomen soft, non-tender, nondistended. Hepatic and splenic margins not palpable. MUSCULOSKELETAL: Extremities without clubbing, cyanosis, or edema. No obvious deformities. NEUROLOGICAL: Awake and alert. No obvious cranial nerve deficits. Motor grossly within normal limits. Five out of 5 muscle strength in the arms and legs. Normal speech. PSYCHIATRIC: Appropriate mood and affect; insight and judgment normal. Data Data Last Documented VS Vital Signs Date Time Temp Pulse Resp B/P (MAP) Pulse Ox O2 Delivery O2 Flow Rate FiO2 06/07/17 15:00 98.2 120 16 113/70 (84) 98 Room Air Orders Orders Diet Regular Basic (06/07/17 Dinner) Complete Blood Count With Diff (06/07/17 15:10) Comprehensive Metabolic Panel (06/07/17 15:10) Thyroid Stimulating Hormone (06/07/17 15:10) Psych Screen (06/07/17 15:10) Drug Screen, Random Urine (06/07/17 15:10) Alcohol (Ethanol) (06/07/17 15:10) Urinalysis - C+S If Indicated (06/07/17 15:10) Hydroxyzine Pamoate (Vistaril) (06/07/17 15:45) Clonidine (Catapres) (06/07/17 15:45) Urine Culture (06/07/17 16:50) Labs Laboratory Tests Test 06/07/17 16:40 06/07/17 16:50 White Blood Count 13.4 TH/MM3 Red Blood Count 4.34 MIL/MM3 Hemoglobin 14.0 GM/DL Hematocrit 40.4 % Mean Corpuscular Volume 92.9 FL Mean Corpuscular Hemoglobin 32.2 PG Mean Corpuscular Hemoglobin Concent 34.6 % Red Cell Distribution Width 14.1 % Platelet Count 313 TH/MM3 Mean Platelet Volume 8.4 FL Neutrophils (%) (Auto) 62.5 % Lymphocytes (%) (Auto) 30.3 % Monocytes (%) (Auto) 6.5 % Eosinophils (%) (Auto) 0.4 % Basophils (%) (Auto) 0.3 % Neutrophils # (Auto) 8.4 TH/MM3 Lymphocytes # (Auto) 4.1 TH/MM3 Monocytes # (Auto) 0.9 TH/MM3 Eosinophils # (Auto) 0.1 TH/MM3 Basophils # (Auto) 0.0 TH/MM3 CBC Comment DIFF FINAL Differential Comment Urine Color YELLOW Urine Turbidity CLOUDY Urine pH 5.5 Urine Specific [place] 1.026 Urine Protein 100 mg/dL Urine Glucose (UA) NEG mg/dL Urine Ketones 40 mg/dL Urine Occult Blood MOD Urine Nitrite NEG Urine Bilirubin NEG Urine Urobilinogen 2.0 MG/DL Urine Leukocyte Esterase MOD Urine RBC 33 /hpf Urine WBC 18 /hpf Urine Squamous Epithelial Cells 82 /hpf Urine Bacteria OCC /hpf Urine Hyaline Casts 13 /lpf Urine Mucus MANY /lpf Microscopic Urinalysis Comment CULTURE INDICATED MDM Medical Decision Making Medical Screen Exam Complete: Yes Emergency Medical Condition: Yes Medical Record Reviewed: Yes Differential Diagnosis History of IV drug abuse. Narcotic withdrawal. Suicidal ideation. History of bipolar disorder. Narrative Course Patient appears medically stable at time of exam. Labs ordered per protocol. Patient is given 0.1 mg clonidine p.o. as well as 25 mg of Vistaril p.o. Patient medically cleared for psychiatric evaluation. Keflex is Ordered TID for UTI. Diagnosis Primary Impression: UTI (urinary tract infection) Qualified Codes: N30.00 - Acute cystitis without hematuria Condition: Stable Rainer Moses Jun 07, 2017 15:45
[2017-06-07 17:12] LABS: AUTOMATED NEUTROPHIL # 8.4 TH/MM3 (1.8-7.7); BASOPHIL % 0.3 % (0.0-2.0); EOSINOPHIL # 0.1 TH/MM3 (0-0.4); EOSINOPHIL % 0.4 % (0.0-4.0); HEMATOCRIT 40.4 % (35.0-46.0); LYMPH % 30.3 % (9.0-44.0); LYMPHOCYTE # 4.1 TH/MM3 (1.0-4.8); MEAN CELL VOLUME 92.9 FL (80.0-100.0); MEAN CORPUSCULAR HEMOGLOBIN 32.2 PG (27.0-34.0); MEAN CORPUSCULAR HGB CONC 34.6 % (32.0-36.0); MEAN PLATELET VOLUME 8.4 FL (7.0-11.0); MONO % 6.5 % (0.0-8.0); MONOCYTE # 0.9 TH/MM3 (0-0.9); NEUT % 62.5 % (16.0-70.0); PLATELET COUNT 313 TH/MM3 (150-450); RED BLOOD COUNT 4.34 MIL/MM3 (4.00-5.30); RED CELL DISTRIBUTION WIDTH 14.1 % (11.6-17.2); WHITE BLOOD COUNT 13.4 TH/MM3 (4.0-11.0)
[2017-06-07 17:17] LABS: BACTERIA, URINE OCC /hpf; BILIRUBIN, URINE NEG (NEG); BLOOD, URINE MOD (NEG); GLUCOSE,URINE NEG (NEG); HYALINE CAST, URINE 13 /lpf (RARE); KETONE, URINE 40 mg/dL (NEG); MUCUS URINE MANY /lpf (OCC); NITRITE,URINE NEG (NEG); PH, URINE 5.5 (5.0-8.5); SQUAMOUS EPITHELIAL CELL URINE 82 /hpf (0-5); URINE COLOR YELLOW (YELLW/STRAW); URINE LEUKOCYTE ESTERASE MOD (NEG)
[2017-06-07 17:31] LABS: ALBUMIN 3.6 GM/DL (3.4-5.0); AST (GOT) 6 U/L (15-37); BICARBONATE 26.1 MEQ/L (21.0-32.0); BLOOD UREA NITROGEN 13 MG/DL (7-18); CALCIUM 8.8 MG/DL (8.5-10.1); CHLORIDE 104 MEQ/L (98-107); CREATININE 0.62 MG/DL (0.50-1.00); GLOMERULAR FILTRATION RATE 105 ML/MIN (>89); GLUCOSE,RANDOM 79 MG/DL (74-106); SODIUM (NA) 138 MEQ/L (136-145)
[2017-06-07 17:42] LABS: ALKALINE PHOSPHATASE 72 U/L (45-117); ALT (GPT) 10 U/L (10-53); TOTAL BILIRUBIN ADULT 0.3 MG/DL (0.2-1.0); TOTAL PROTEIN 7.4 GM/DL (6.4-8.2)
[2017-06-07] MEDS: CEPHALEXIN MONOHYDRATE 500 MG CAP PO SCH ×2 (18:09→22:00)
[2017-06-07 18:30] VITALS: PULSE 84; RESP 18
[2017-06-07 18:49] VITALS: BP 112/69; PULSE 111; RESP 16; TEMP 98.7; O2SAT 98
[2017-06-08 02:17] VITALS: BP 111/57; PULSE 69; RESP 16; O2SAT 98
[2017-06-08] MEDS: CEPHALEXIN MONOHYDRATE 500 MG CAP PO SCH (06:00)
[2017-06-08 06:45] VITALS: BP 100/59; PULSE 86; RESP 18; O2SAT 98
[2017-06-08] MEDS ORDERED: RISP1 PO (09:34)
--- NOTE | 2017-06-08 09:34 | PD ---
History of Present Illness Chief Complaint: Bipolar, hyperthyroidism Time Seen by Provider: :09 Travel History International Travel<30 Days: No Contact w/Intl Traveler<30days: No Known affected area: No Legal Status Legal Status: Voluntary History of Present Illness: This is a 46-year-old single, female who presents voluntarily to the emergency department for reported anxiety and suicidal thoughts. Patient is known to this facility on her last inpatient admission was within the last 2 months. While here she was diagnosed with bipolar disorder. She reports that she follows up with [facility] outpatient. Reviewed electronic medical record, labs, and discussed case with staff. Patient's toxicology screen is negative. Her TSH is 0.127. Notably patient also is positive for urinary tract infection. Patient has a history of methadone use. Patient was interviewed in her room with NAINA Chi present. Patient is awake, alert, and oriented 4. Her speech is clear, logical, and organized. She does not seem to be internally preoccupied. She does state that she has had "suicidal thoughts". However, she relates that they have been going on for 6 months and she has never acted upon them. Additionally, she denies ever having attempted harming herself. She denies homicidal ideation, visual or auditory hallucinations. I can elicit no delusional material at this time. Initially, Ms. Campos was pressing for admission. I feel, after speaking with her parents and reviewing the record, that Ms. Campos is seeking a secondary gain of methadone as it was prescribed to her on her last inpatient admission. Her mood is good and her affect is euthymic and childlike. Spoke with patient's parents with her permission. Ms. Campos lives with her parents and is unemployed. They report that they feel the methadone use is the biggest issue. Per the patient's mother, there is no follow-up with endocrinology after her last admission which showed nodules on her thyroid. Explained to the patient and her mother that hyperthyroidism can mimic mental illness. seaman will be visiting with patient and attempt to set her up with insurance. Stressed to mother the importance of following up with endocrinology outpatient. Antibiotics are being prescribed and a prescription will be sent with her to treat her urinary tract infection. Patient's mother and father stated they feel comfortable taking her home at this time. Additionally, patient reports that she feels comfortable with going home as well. She will continue to follow-up outpatient [facility] Past Medical History Narrative Medical Elevated TSH and urinary tract infection Arthritis: No Asthma: No Autoimmune Disease: No Bipolar Disorder: Yes Anxiety: Yes Depression: Yes Heart Rhythm Problems: No Cancer: No Cardiovascular Problems: No High Cholesterol: No Chemotherapy: No Chest Pain: No Congestive Heart Failure: No COPD: No Cerebrovascular Accident: No Diabetes: No Endocrine: Yes GERD: No Genitourinary: No Headaches: No Hiatal Hernia: No Hypertension: Yes (PT DENIES ) Immune Disorder: No Kidney Stones: No Musculoskeletal: No Neurologic: No Psychiatric: Yes Reproductive: No Respiratory: No Migraines: No Radiation Therapy: No Renal Failure: No Seizures: No Sickle Cell Disease: No Sleep Apnea: No Thyroid Disease: Yes (hyper thyroid nodules on thyroid) Ulcer: No Tetanus Vaccination: Unknown ?: Unknown Past Surgical History Surgical History: No Previous Surgery Abdominal Surgery: No AICD: No Arteriovenous Shunt: No Cardiac Surgery: No Ear Surgery: No Endocrine Surgery: No Eye Surgery: No Genitourinary Surgery: No Gynecologic Surgery: No Insulin Pump: No Joint Replacement: No Oral Surgery: No Pacemaker: No Thoracic Surgery: No Psychiatric History Psychiatric History Inpatient in this facility at the beginning of the month. Hx Psychiatric Treatment: Dx'd with depression and bipolar "a few mos. ago". History of Inpatient Treatment: Yes Guns or firearms in home: No Social History Smokes pack per day. Denies alcohol consumption. Reports previous history of IV drug use. Per parents, they have been weaning her off of methadone. Hx Alcohol Use: Yes Hx Tobacco Use: Yes Hx Substance Use: Yes (1 ppd cigarettes) Substance Use Type: Nicotine/Cigarettes Other Substances Used: former pain pill addiction x 4yrs. Hx of Substance Use Treatment: Yes Family Psychiatric History No familial history of suicide attempts or bipolar disorder. Allergies-Medications (Allergen,Severity, Reaction): Coded Allergies: No Known Allergies (Verified Allergy, Unknown, 03/24/03) Reported Meds & Prescriptions Reported Meds & Active Scripts Active Zoloft (Sertraline HCl) 50 Mg Tab 25 Mg PO DAILY 10 Days Reported ["Thyroid Med"] Hydroxyzine HCl 25 Mg Tab 25 Mg PO BID Methadone Liq (Methadone HCl) 1 Mg/Ml Liqd 7 Mg PO DAILY Mental Status Examination Appearance: Appropriate, Well dressed/well groomed Consciousness: Alert Orientation: x4 Motor Activity: Normal gait Speech: Unremarkable Language: Adequate Fund of Knowledge: Inadequate Attention and Concentration: Adequate Memory: Unremarkable Mood: Good Affect: Blunt Thought Process & Associations: Linear Thought Content: Appropriate Hallucination Type: None Delusion Type: None Suicidal Ideation: No Suicidal Plan: No Suicidal Intention: No Homicidal Ideation: No Homicidal Plan: No Homicidal Intention: No Insight: Fair Judgment: Impulsive MDM Medical Decision Making Medical Record Reviewed: Yes Assessment/Plan This is a 46-year-old single, white, unemployed female who lives with her parents. Who presented voluntarily to the ED for "anxiety and suicidal thoughts " which she relates to withdraw from methadone. Patient saw her parents car yesterday and was "driving her own". Her father feels she was "out looking for methadone". He advises that they have "weaned her off of methadone". Patient admits to a history of IV drug use. Her toxicology screen today is negative. Her TSH 0.127 today. Additionally, she has a urinary tract infection. The patient upon exam is alert and oriented 4. Initially, patient advises that she has been having "thoughts of hurting myself for about 6 months now". She denies ever having made any attempt at self-harm or suicide. She does not have a plan nor intent. She denies any homicidal ideation, visual or auditory hallucinations, and does not appear delusional at this time. Her speech is clear, logical, and organized. There is no evidence of internal stimulation. Patient initially was pushing for admission. I feel her secondary gain and admission is methadone as during her last inpatient at this facility she was prescribed it. Spoke with patient's parents with her permission. Her parents agree with my assessment that she may be seeking methadone through admission. Educated both patient and her parents on the importance of having her thyroid checked out by an assembler erector given her recent changes in mental status as well as test results from her last admission. They identified insurances being the reason for not following up after her last admission. seaman will be consulted and assist patient with obtaining medical insurance. Patient will be discharged to her parents care with prescription for antibiotics to correct UTI as well as a refill on her Risperdal. She will be advised to follow -up with endocrinology. Spoke with patient and her parents, answered all questions, and everyone is on board with this plan. Patient advised to return to the emergency department if condition worsens. Orders Orders Diet Regular Basic (06/07/17 Dinner) Complete Blood Count With Diff (06/07/17 15:10) Comprehensive Metabolic Panel (06/07/17 15:10) Thyroid Stimulating Hormone (06/07/17 15:10) Psych Screen (06/07/17 15:10) Drug Screen, Random Urine (06/07/17 15:10) Alcohol (Ethanol) (06/07/17 15:10) Urinalysis - C+S If Indicated (06/07/17 15:10) Hydroxyzine Pamoate (Vistaril) (06/07/17 15:45) Clonidine (Catapres) (06/07/17 15:45) Urine Culture (06/07/17 16:50) Cephalexin (Keflex) (06/07/17 18:00) Diet Regular Basic (06/08/17 Breakfast) Results Vital Signs Date Time Temp Pulse Resp B/P (MAP) Pulse Ox O2 Delivery O2 Flow Rate FiO2 06/08/17 06:45 86 18 100/59 (73) 98 Room Air 06/08/17 02:17 69 16 111/57 (75) 98 Room Air 06/07/17 18:49 98.7 111 16 112/69 (83) 98 Room Air 06/07/17 18:30 84 18 06/07/17 15:00 98.2 120 16 113/70 (84) 98 Room Air Laboratory Tests Test 06/07/17 16:40 06/07/17 16:50 White Blood Count 13.4 Red Blood Count 4.34 Hemoglobin 14.0 Hematocrit 40.4 Mean Corpuscular Volume 92.9 Mean Corpuscular Hemoglobin 32.2 Mean Corpuscular Hemoglobin Concent 34.6 Red Cell Distribution Width 14.1 Platelet Count 313 Mean Platelet Volume 8.4 Neutrophils (%) (Auto) 62.5 Lymphocytes (%) (Auto) 30.3 Monocytes (%) (Auto) 6.5 Eosinophils (%) (Auto) 0.4 Basophils (%) (Auto) 0.3 Neutrophils # (Auto) 8.4 Lymphocytes # (Auto) 4.1 Monocytes # (Auto) 0.9 Eosinophils # (Auto) 0.1 Basophils # (Auto) 0.0 CBC Comment DIFF FINAL Differential Comment Blood Urea Nitrogen 13 Creatinine 0.62 Random Glucose 79 Total Protein 7.4 Albumin 3.6 Calcium Level 8.8 Alkaline Phosphatase 72 Aspartate Amino Transf (AST/SGOT) 6 Alanine Aminotransferase (ALT/SGPT) 10 Total Bilirubin 0.3 Sodium Level 138 Potassium Level 3.9 Chloride Level 104 Carbon Dioxide Level 26.1 Anion Gap 8 Estimat Glomerular Filtration Rate 105 Thyroid Stimulating Hormone 3rd Gen 0.127 Ethyl Alcohol Level LESS THAN 3 Urine Color YELLOW Urine Turbidity CLOUDY Urine pH 5.5 Urine Specific [place] 1.026 Urine Protein 100 Urine Glucose (UA) NEG Urine Ketones 40 Urine Occult Blood MOD Urine Nitrite NEG Urine Bilirubin NEG Urine Urobilinogen 2.0 Urine Leukocyte Esterase MOD Urine RBC 33 Urine WBC 18 Urine Squamous Epithelial Cells 82 Urine Bacteria OCC Urine Hyaline Casts 13 Urine Mucus MANY Microscopic Urinalysis Comment CULTURE INDICATED Urine Opiates Screen NEG Urine Barbiturates Screen NEG Urine Amphetamines Screen NEG Urine Benzodiazepines Screen NEG Urine Cocaine Screen NEG Urine Cannabinoids Screen NEG Date/Time Source Procedure Growth Status 06/07/17 16:50 Urine Clean Catch Urine Culture Pending Received Diagnosis Primary Impression: Bipolar disorder Additional Impression: Hyperthyroidism Prescriptions Risperidone (Risperdal) 1 Mg Tab 2 MG PO Q12HR for Mental Health for 10 Days, #40 TAB 0 Refills Prov: Suha Catherine 06/08/17 Condition: Stable Problem Qualifiers Suha Catherine Jun 08, 2017 09:34
--- NOTE | 2017-06-08 10:47 | PD ---
Physical Exam Date Seen by Provider: Jun 08, 2017 Time Seen by Provider: 10:45 Narrative 46-year-old female previously Noble acted and medically cleared for psychiatric evaluation, has been seen by psychiatric staff and deemed psychiatrically stable for discharge at this time. Patient will be discharged home with her parents. Patient is to follow-up with her psychiatrist as discussed in the psychiatry note. Patient remains medically stable at this time. Data Data Last Documented VS Vital Signs Date Time Temp Pulse Resp B/P (MAP) Pulse Ox O2 Delivery O2 Flow Rate FiO2 06/08/17 06:45 86 18 100/59 (73) 98 Room Air 06/07/17 18:49 98.7 Orders Orders Diet Regular Basic (06/07/17 Dinner) Complete Blood Count With Diff (06/07/17 15:10) Comprehensive Metabolic Panel (06/07/17 15:10) Thyroid Stimulating Hormone (06/07/17 15:10) Psych Screen (06/07/17 15:10) Drug Screen, Random Urine (06/07/17 15:10) Alcohol (Ethanol) (06/07/17 15:10) Urinalysis - C+S If Indicated (06/07/17 15:10) Hydroxyzine Pamoate (Vistaril) (06/07/17 15:45) Clonidine (Catapres) (06/07/17 15:45) Urine Culture (06/07/17 16:50) Cephalexin (Keflex) (06/07/17 18:00) Diet Regular Basic (06/08/17 Breakfast) Diet Regular Basic (06/08/17 Lunch) Ed Discharge Order (06/08/17 10:44) Labs Laboratory Tests Test 06/07/17 16:40 06/07/17 16:50 White Blood Count 13.4 TH/MM3 Red Blood Count 4.34 MIL/MM3 Hemoglobin 14.0 GM/DL Hematocrit 40.4 % Mean Corpuscular Volume 92.9 FL Mean Corpuscular Hemoglobin 32.2 PG Mean Corpuscular Hemoglobin Concent 34.6 % Red Cell Distribution Width 14.1 % Platelet Count 313 TH/MM3 Mean Platelet Volume 8.4 FL Neutrophils (%) (Auto) 62.5 % Lymphocytes (%) (Auto) 30.3 % Monocytes (%) (Auto) 6.5 % Eosinophils (%) (Auto) 0.4 % Basophils (%) (Auto) 0.3 % Neutrophils # (Auto) 8.4 TH/MM3 Lymphocytes # (Auto) 4.1 TH/MM3 Monocytes # (Auto) 0.9 TH/MM3 Eosinophils # (Auto) 0.1 TH/MM3 Basophils # (Auto) 0.0 TH/MM3 CBC Comment DIFF FINAL Differential Comment Blood Urea Nitrogen 13 MG/DL Creatinine 0.62 MG/DL Random Glucose 79 MG/DL Total Protein 7.4 GM/DL Albumin 3.6 GM/DL Calcium Level 8.8 MG/DL Alkaline Phosphatase 72 U/L Aspartate Amino Transf (AST/SGOT) 6 U/L Alanine Aminotransferase (ALT/SGPT) 10 U/L Total Bilirubin 0.3 MG/DL Sodium Level 138 MEQ/L Potassium Level 3.9 MEQ/L Chloride Level 104 MEQ/L Carbon Dioxide Level 26.1 MEQ/L Anion Gap 8 MEQ/L Estimat Glomerular Filtration Rate 105 ML/MIN Thyroid Stimulating Hormone 3rd Gen 0.127 uIU/ML Ethyl Alcohol Level LESS THAN 3 MG/DL Urine Color YELLOW Urine Turbidity CLOUDY Urine pH 5.5 Urine Specific [place] 1.026 Urine Protein 100 mg/dL Urine Glucose (UA) NEG mg/dL Urine Ketones 40 mg/dL Urine Occult Blood MOD Urine Nitrite NEG Urine Bilirubin NEG Urine Urobilinogen 2.0 MG/DL Urine Leukocyte Esterase MOD Urine RBC 33 /hpf Urine WBC 18 /hpf Urine Squamous Epithelial Cells 82 /hpf Urine Bacteria OCC /hpf Urine Hyaline Casts 13 /lpf Urine Mucus MANY /lpf Microscopic Urinalysis Comment CULTURE INDICATED Urine Opiates Screen NEG Urine Barbiturates Screen NEG Urine Amphetamines Screen NEG Urine Benzodiazepines Screen NEG Urine Cocaine Screen NEG Urine Cannabinoids Screen NEG MDM Medical Record Reviewed: Yes Supervised Visit with MAGY: Yes Narrative Course 46-year-old female previously Noble acted and medically cleared for psychiatric evaluation, has been seen by psychiatric staff and deemed psychiatrically stable for discharge at this time. Patient will be discharged home with her parents. Patient is to follow-up with her psychiatrist as discussed in the psychiatry note. Patient remains medically stable at this time. Diagnosis Primary Impression: Bipolar disorder Qualified Codes: F31.9 - Bipolar disorder, unspecified Additional Impression: Hyperthyroidism Referrals: [facility] Patient Instructions: General Instructions Departure Forms: Tests/Procedures Scripts Risperidone (Risperdal) 1 Mg Tab 2 MG PO Q12HR for Mental Health for 10 Days, #40 TAB 0 Refills Prov: Suha Catherine JOSE FRANCISCO 06/08/17 Disposition: 01 DISCHARGE HOME Condition: Stable Rainer Moses Jun 08, 2017 10:47
[2017-06-08] MEDS ORDERED: CEPH-460 PO (10:54)
== END 2017-06-08 11:40 | disposition home or self-care (01) ==
LOC: NEPJ 14:11
DX: F31.9 Bipolar disorder, unspecified (principal); E05.90 Thyrotoxicosis, unspecified without thyrotoxic crisis or storm; F17.210 Nicotine dependence, cigarettes, uncomplicated; Z79.899 Other long term (current) drug therapy
CPT/HCPCS: 80053; 80307; 81001; 84443; 85025; 87086; 99283; Q0177

== ENCOUNTER 2017-07-19 21:06 | Emergency (ER) | payer OTHER ==
[~2017-07-19 21:06] MED LIST changes: +CEPH-460 PO; +HYDR-3133 PO; +[UNRECOGNIZED DRUG - REMARK]
[2017-07-19 21:23] VITALS: BP 131/80; PULSE 106; RESP 18; TEMP 97.8; O2SAT 97
[2017-07-19 21:53] LABS: AUTOMATED NEUTROPHIL # 10.8 TH/MM3 (1.8-7.7); BASOPHIL # 0.1 TH/MM3 (0-0.2); BASOPHIL % 0.4 % (0.0-2.0); EOSINOPHIL # 0.1 TH/MM3 (0-0.4); EOSINOPHIL % 0.5 % (0.0-4.0); HEMATOCRIT 41.5 % (35.0-46.0); HEMOGLOBIN 14.2 GM/DL (11.6-15.3); LYMPH % 18.9 % (9.0-44.0); LYMPHOCYTE # 2.9 TH/MM3 (1.0-4.8); MEAN CELL VOLUME 92.8 FL (80.0-100.0); MEAN CORPUSCULAR HEMOGLOBIN 31.7 PG (27.0-34.0); MEAN CORPUSCULAR HGB CONC 34.1 % (32.0-36.0); MONO % 8.8 % (0.0-8.0); MONOCYTE # 1.3 TH/MM3 (0-0.9); NEUT % 71.4 % (16.0-70.0); PLATELET COUNT 308 TH/MM3 (150-450); RED BLOOD COUNT 4.48 MIL/MM3 (4.00-5.30); RED CELL DISTRIBUTION WIDTH 14.1 % (11.6-17.2); WHITE BLOOD COUNT 15.2 TH/MM3 (4.0-11.0)
[2017-07-19] MEDS ORDERED: LORazepam 2 MG/ML VIAL IM ONE (22:00)
[2017-07-19 22:26] LABS: BACTERIA, URINE RARE /hpf; BILIRUBIN, URINE NEG (NEG); BLOOD, URINE TRACE (NEG); GLUCOSE,URINE NEG (NEG); HYALINE CAST, URINE 2 /lpf (RARE); KETONE, URINE NEG (NEG); NITRITE,URINE NEG (NEG); SQUAMOUS EPITHELIAL CELL URINE 6 /hpf (0-5); URINE COLOR YELLOW (YELLW/STRAW); URINE LEUKOCYTE ESTERASE NEG (NEG)
--- NOTE | 2017-07-19 22:32 | PD ---
HPI Chief Complaint: Psychiatric Symptoms Time Seen by Provider: 21:42 Travel History International Travel<30 days: No Contact w/Intl Traveler<30days: No Traveled to known affect area: No History of Present Illness HPI Patient is a 46-year-old female presenting to the emergency department under Noble act. Patient states she was going to steal her mother's car to commit suicide. She states she is going to drive the car into something. When asked how long her symptoms have been going on for she states "a while". She also reports having a plan to use pills or a knife in order to kill herself. She does report hallucinations. She denies any drugs or alcohol use. She has no physical complaints at this time. She states that she does not sleep well. She is on Risperdal and Zoloft, she states these are not working for her. Symptom onset is unknown, symptoms are severe in nature. PFSH Past Medical History Bipolar Disorder: Yes Anxiety: Yes Depression: Yes Endocrine: Yes Psychiatric: Yes (bipolar d/o, depression) Reproductive: No Respiratory: No Migraines: No Radiation Therapy: No Renal Failure: No Seizures: No Sickle Cell Disease: No Sleep Apnea: No Thyroid Disease: Yes (hyper thyroid nodules on thyroid) Ulcer: No ?: Unknown LMP: June, Past Surgical History Abdominal Surgery: No AICD: No Arteriovenous Shunt: No Cardiac Surgery: No Ear Surgery: No Endocrine Surgery: No Eye Surgery: No Genitourinary Surgery: No Gynecologic Surgery: No Insulin Pump: No Joint Replacement: No Oral Surgery: No Pacemaker: No Thoracic Surgery: No Social History Alcohol Use: No Tobacco Use: Yes (1 PPD cigarettes) Substance Use: Yes (1 ppd cigarettes) Allergies-Medications (Allergen,Severity, Reaction): Coded Allergies: No Known Allergies (Verified Allergy, Unknown, 07/19/17) Reported Meds & Prescriptions Reported Meds & Active Scripts Active Risperdal (Risperidone) 1 Mg Tab 2 Mg PO Q12HR 10 Days Zoloft (Sertraline HCl) 50 Mg Tab 25 Mg PO DAILY 10 Days Review of Systems Except as stated in HPI: all other systems reviewed are Neg Psychiatric: Positive: Anxiety, Depression, Suicidal Ideations Physical Exam Narrative GENERAL: Well-developed, well-nourished, well-kept female. Presenting in no acute distress. SKIN: Warm and dry. HEAD: Atraumatic. Normocephalic. EYES: Pupils equal and round. No scleral icterus. No injection or drainage. ENT: No nasal bleeding or discharge. Mucous membranes pink and moist. NECK: Trachea midline. No JVD. CARDIOVASCULAR: Regular rate and rhythm. RESPIRATORY: No accessory muscle use. Clear to auscultation. Breath sounds equal bilaterally. GASTROINTESTINAL: Abdomen soft, non-tender, nondistended. Hepatic and splenic margins not palpable. MUSCULOSKELETAL: Extremities without clubbing, cyanosis, or edema. No obvious deformities. NEUROLOGICAL: Awake and alert. No obvious cranial nerve deficits. Motor grossly within normal limits. Five out of 5 muscle strength in the arms and legs. Normal speech. PSYCHIATRIC: Anxious mood and affect; insight and judgment normal. Data Data Last Documented VS Vital Signs Date Time Temp Pulse Resp B/P (MAP) Pulse Ox O2 Delivery O2 Flow Rate FiO2 07/19/17 21:23 97.8 106 18 131/80 (97) 97 Orders Orders Complete Blood Count With Diff (07/19/17 21:17) Comprehensive Metabolic Panel (07/19/17 21:17) Urinalysis - C+S If Indicated (07/19/17 21:17) Psych Screen (07/19/17 21:17) Drug Screen, Random Urine (07/19/17 21:17) Alcohol (Ethanol) (07/19/17 21:17) Salicylates (Aspirin) (07/19/17 21:17) Tylenol (Acetaminophen) (07/19/17 21:17) Lorazepam Inj (Ativan Inj) (07/19/17 22:00) Labs Laboratory Tests Test 07/19/17 00:00 07/19/17 21:27 07/19/17 22:05 07/20/17 00:00 Blood Urea Nitrogen 11 MG/DL Creatinine 0.88 MG/DL Random Glucose 106 MG/DL Total Protein 7.2 GM/DL Albumin 3.6 GM/DL Calcium Level 8.9 MG/DL Alkaline Phosphatase 70 U/L Aspartate Amino Transf (AST/SGOT) 17 U/L Alanine Aminotransferase (ALT/SGPT) 15 U/L Total Bilirubin 0.3 MG/DL Sodium Level 141 MEQ/L Potassium Level 4.1 MEQ/L Chloride Level 102 MEQ/L Carbon Dioxide Level 31.8 MEQ/L Anion Gap 7 MEQ/L Estimat Glomerular Filtration Rate 70 ML/MIN Acetaminophen Level LESS THAN 2.0 MCG/ML Ethyl Alcohol Level LESS THAN 3 MG/DL White Blood Count 15.2 TH/MM3 Red Blood Count 4.48 MIL/MM3 Hemoglobin 14.2 GM/DL Hematocrit 41.5 % Mean Corpuscular Volume 92.8 FL Mean Corpuscular Hemoglobin 31.7 PG Mean Corpuscular Hemoglobin Concent 34.1 % Red Cell Distribution Width 14.1 % Platelet Count 308 TH/MM3 Mean Platelet Volume 8.0 FL Neutrophils (%) (Auto) 71.4 % Lymphocytes (%) (Auto) 18.9 % Monocytes (%) (Auto) 8.8 % Eosinophils (%) (Auto) 0.5 % Basophils (%) (Auto) 0.4 % Neutrophils # (Auto) 10.8 TH/MM3 Lymphocytes # (Auto) 2.9 TH/MM3 Monocytes # (Auto) 1.3 TH/MM3 Eosinophils # (Auto) 0.1 TH/MM3 Basophils # (Auto) 0.1 TH/MM3 CBC Comment DIFF FINAL Differential Comment Urine Color YELLOW Urine Turbidity CLEAR Urine pH 7.0 Urine Specific [place] 1.009 Urine Protein NEG mg/dL Urine Glucose (UA) NEG mg/dL Urine Ketones NEG mg/dL Urine Occult Blood TRACE Urine Nitrite NEG Urine Bilirubin NEG Urine Urobilinogen LESS THAN 2.0 MG/DL Urine Leukocyte Esterase NEG Urine RBC 5 /hpf Urine WBC 2 /hpf Urine Squamous Epithelial Cells 6 /hpf Urine Bacteria RARE /hpf Urine Hyaline Casts 2 /lpf Microscopic Urinalysis Comment CULT NOT INDICATED Salicylates Level 4.7 MG/DL MDM Medical Decision Making Medical Screen Exam Complete: Yes Emergency Medical Condition: Yes Medical Record Reviewed: Yes Interpretation(s) Laboratory Tests Test 07/19/17 00:00 07/19/17 21:27 07/19/17 22:05 07/20/17 00:00 Blood Urea Nitrogen 11 MG/DL Creatinine 0.88 MG/DL Random Glucose 106 MG/DL Total Protein 7.2 GM/DL Albumin 3.6 GM/DL Calcium Level 8.9 MG/DL Alkaline Phosphatase 70 U/L Aspartate Amino Transf (AST/SGOT) 17 U/L Alanine Aminotransferase (ALT/SGPT) 15 U/L Total Bilirubin 0.3 MG/DL Sodium Level 141 MEQ/L Potassium Level 4.1 MEQ/L Chloride Level 102 MEQ/L Carbon Dioxide Level 31.8 MEQ/L Anion Gap 7 MEQ/L Estimat Glomerular Filtration Rate 70 ML/MIN Acetaminophen Level LESS THAN 2.0 MCG/ML Ethyl Alcohol Level LESS THAN 3 MG/DL White Blood Count 15.2 TH/MM3 Red Blood Count 4.48 MIL/MM3 Hemoglobin 14.2 GM/DL Hematocrit 41.5 % Mean Corpuscular Volume 92.8 FL Mean Corpuscular Hemoglobin 31.7 PG Mean Corpuscular Hemoglobin Concent 34.1 % Red Cell Distribution Width 14.1 % Platelet Count 308 TH/MM3 Mean Platelet Volume 8.0 FL Neutrophils (%) (Auto) 71.4 % Lymphocytes (%) (Auto) 18.9 % Monocytes (%) (Auto) 8.8 % Eosinophils (%) (Auto) 0.5 % Basophils (%) (Auto) 0.4 % Neutrophils # (Auto) 10.8 TH/MM3 Lymphocytes # (Auto) 2.9 TH/MM3 Monocytes # (Auto) 1.3 TH/MM3 Eosinophils # (Auto) 0.1 TH/MM3 Basophils # (Auto) 0.1 TH/MM3 CBC Comment DIFF FINAL Differential Comment Urine Color YELLOW Urine Turbidity CLEAR Urine pH 7.0 Urine Specific [place] 1.009 Urine Protein NEG mg/dL Urine Glucose (UA) NEG mg/dL Urine Ketones NEG mg/dL Urine Occult Blood TRACE Urine Nitrite NEG Urine Bilirubin NEG Urine Urobilinogen LESS THAN 2.0 MG/DL Urine Leukocyte Esterase NEG Urine RBC 5 /hpf Urine WBC 2 /hpf Urine Squamous Epithelial Cells 6 /hpf Urine Bacteria RARE /hpf Urine Hyaline Casts 2 /lpf Microscopic Urinalysis Comment CULT NOT INDICATED Salicylates Level 4.7 MG/DL Vital Signs Date Time Temp Pulse Resp B/P (MAP) Pulse Ox O2 Delivery O2 Flow Rate FiO2 07/19/17 21:23 97.8 106 18 131/80 (31) 97 Differential Diagnosis Mood disorder versus anxiety versus depression versus suicidal ideations versus metabolic abnormality versus other Narrative Course Patient is a 46-year-old female presenting to emerge department under Noble act for psychiatric evaluation. Patient appears anxious and restless. Patient is mildly tachycardic on arrival likely secondary to the aforementioned symptoms. Mental health screening discussed with the patient. Psychiatric screen ordered. Ativan ordered. Labs reviewed, no acute findings identified. Patient is medically clear for psychiatric evaluation. Diagnosis Primary Impression: Medical clearance for psychiatric admission Condition: Stable Janine Newell July 19, 2017 22:32
--- NOTE | 2017-07-19 23:13 | PD ---
Data Data Last Documented VS Vital Signs Date Time Temp Pulse Resp B/P (MAP) Pulse Ox O2 Delivery O2 Flow Rate FiO2 07/19/17 21:23 97.8 106 18 131/80 (97) 97 Orders Orders Complete Blood Count With Diff (07/19/17 21:17) Comprehensive Metabolic Panel (07/19/17 21:17) Urinalysis - C+S If Indicated (07/19/17 21:17) Psych Screen (07/19/17 21:17) Drug Screen, Random Urine (07/19/17 21:17) Alcohol (Ethanol) (07/19/17 21:17) Salicylates (Aspirin) (07/19/17 21:17) Tylenol (Acetaminophen) (07/19/17 21:17) Lorazepam Inj (Ativan Inj) (07/19/17 22:00) Labs Laboratory Tests Test 07/19/17 21:27 07/19/17 22:05 White Blood Count 15.2 TH/MM3 Red Blood Count 4.48 MIL/MM3 Hemoglobin 14.2 GM/DL Hematocrit 41.5 % Mean Corpuscular Volume 92.8 FL Mean Corpuscular Hemoglobin 31.7 PG Mean Corpuscular Hemoglobin Concent 34.1 % Red Cell Distribution Width 14.1 % Platelet Count 308 TH/MM3 Mean Platelet Volume 8.0 FL Neutrophils (%) (Auto) 71.4 % Lymphocytes (%) (Auto) 18.9 % Monocytes (%) (Auto) 8.8 % Eosinophils (%) (Auto) 0.5 % Basophils (%) (Auto) 0.4 % Neutrophils # (Auto) 10.8 TH/MM3 Lymphocytes # (Auto) 2.9 TH/MM3 Monocytes # (Auto) 1.3 TH/MM3 Eosinophils # (Auto) 0.1 TH/MM3 Basophils # (Auto) 0.1 TH/MM3 CBC Comment DIFF FINAL Differential Comment Urine Color YELLOW Urine Turbidity CLEAR Urine pH 7.0 Urine Specific [place] 1.009 Urine Protein NEG mg/dL Urine Glucose (UA) NEG mg/dL Urine Ketones NEG mg/dL Urine Occult Blood TRACE Urine Nitrite NEG Urine Bilirubin NEG Urine Urobilinogen LESS THAN 2.0 MG/DL Urine Leukocyte Esterase NEG Urine RBC 5 /hpf Urine WBC 2 /hpf Urine Squamous Epithelial Cells 6 /hpf Urine Bacteria RARE /hpf Urine Hyaline Casts 2 /lpf Microscopic Urinalysis Comment CULT NOT INDICATED MDM Supervised Visit with MAGY: Yes Narrative Course I, Dr. Hogan, have reviewed the advance practice practitioner's documentation and am in agreement, met with the patient face to face, made the diagnosis, and the medical decision making was done by me. *My assessment and Findings: Patient is brought under Noble act for suicidal ideation. Medical clearance workup has been ordered CBC is normal No fever or hypotension She is awaiting psychiatric evaluation John Hogan MD July 19, 2017 23:13
[2017-07-20 00:31] LABS: ALBUMIN 3.6 GM/DL (3.4-5.0); ALT (GPT) 15 U/L (10-53); AST (GOT) 17 U/L (15-37); BICARBONATE 31.8 MEQ/L (21.0-32.0); BLOOD UREA NITROGEN 11 MG/DL (7-18); CALCIUM 8.9 MG/DL (8.5-10.1); CHLORIDE 102 MEQ/L (98-107); CREATININE 0.88 MG/DL (0.50-1.00); GLOMERULAR FILTRATION RATE 70 ML/MIN (>89); GLUCOSE,RANDOM 106 MG/DL (74-106); SODIUM (NA) 141 MEQ/L (136-145)
[2017-07-20 00:33] LABS: ALKALINE PHOSPHATASE 70 U/L (45-117); TOTAL BILIRUBIN ADULT 0.3 MG/DL (0.2-1.0); TOTAL PROTEIN 7.2 GM/DL (6.4-8.2)
[2017-07-20 00:35] LABS: ACETAMINOPHEN LESS THAN 2.0 MCG/ML (10.0-30.0)
[2017-07-20 02:18] VITALS: BP 94/62; PULSE 73; RESP 17; O2SAT 99
[2017-07-20 07:11] VITALS: BP 109/63; PULSE 100; RESP 18; O2SAT 97
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
== END 2017-07-20 13:10 ==
LOC: NEDAMB 21:06 → NEPJ 07-20 13:10
DX: F28 Other psychotic disorder not due to a substance or known physiological condition (principal); F17.210 Nicotine dependence, cigarettes, uncomplicated; Z79.899 Other long term (current) drug therapy
CPT/HCPCS: 80053; 80307; 81001; 85025; 96372; 99285; J2060

== ENCOUNTER 2017-07-30 18:00 | Inpatient (IN) | payer OTHER ==
[~2017-07-30] VITALS: Ht 157.5 cm; Wt 52.4 kg
[~2017-07-30 18:00] MED LIST changes: -CEPH-460 PO; -HYDR-3133 PO; -METH5SOL11 PO; -[UNRECOGNIZED DRUG - REMARK]
--- NOTE | 2017-07-30 18:06 | PD ---
HPI Chief Complaint: BA Time Seen by Provider: 18:04 Travel History International Travel<30 days: No Contact w/Intl Traveler<30days: No Traveled to known affect area: No History of Present Illness HPI 86-year-old female presents under Noble act initially by the Police Department. According to her paperwork the patient told the chief revenue officer that she wanted to commit suicide. She recently had some sort of medication change that she felt could be increasing her suicidal thoughts. It appears that the patient was seen here on July 19 with similar complaints. She has a history of bipolar disorder. She reports that she cut her left wrist today with a knife. She has superficial abrasions. Last tetanus vaccination unknown. Denies any other attempts at self-harm. No other complaints at this time. PFSH Past Medical History Bipolar Disorder: Yes Anxiety: Yes Depression: Yes Endocrine: Yes Psychiatric: Yes (bipolar d/o, depression) Reproductive: No Respiratory: No Migraines: No Radiation Therapy: No Renal Failure: No Seizures: No Sickle Cell Disease: No Sleep Apnea: No Thyroid Disease: Yes (hyper thyroid nodules on thyroid) Ulcer: No Past Surgical History Abdominal Surgery: No AICD: No Arteriovenous Shunt: No Cardiac Surgery: No Ear Surgery: No Endocrine Surgery: No Eye Surgery: No Genitourinary Surgery: No Gynecologic Surgery: No Insulin Pump: No Joint Replacement: No Oral Surgery: No Pacemaker: No Thoracic Surgery: No Social History Alcohol Use: No Tobacco Use: Yes (1 PPD cigarettes) Substance Use: No Allergies-Medications (Allergen,Severity, Reaction): Coded Allergies: No Known Allergies (Verified Allergy, Unknown, 07/30/17) Reported Meds & Prescriptions Reported Meds & Active Scripts Active Reported Vistaril (Hydroxyzine Pamoate) 25 Mg Cap 25 Mg PO Q6H PRN Zyprexa (Olanzapine) 20 Mg Tab 20 Mg PO DAILY Review of Systems Except as stated in HPI: all other systems reviewed are Neg Physical Exam Narrative GENERAL: Well-developed well-nourished female no acute distress SKIN: Warm and dry. Superficial linear abrasions left wrist. HEAD: Atraumatic. Normocephalic. EYES: Pupils equal and round. No scleral icterus. No injection or drainage. ENT: No nasal bleeding or discharge. Mucous membranes pink and moist. NECK: Trachea midline. No JVD. CARDIOVASCULAR: Regular rate and rhythm. No murmur appreciated. RESPIRATORY: No accessory muscle use. Clear to auscultation. Breath sounds equal bilaterally. GASTROINTESTINAL: Abdomen soft, non-tender, nondistended. Hepatic and splenic margins not palpable. MUSCULOSKELETAL: No obvious deformities. No clubbing. No cyanosis. No edema. NEUROLOGICAL: Awake and alert. No obvious cranial nerve deficits. Motor grossly within normal limits. Normal speech. Data Data Last Documented VS Vital Signs Date Time Temp Pulse Resp B/P (MAP) Pulse Ox O2 Delivery O2 Flow Rate FiO2 07/30/17 18:08 98.1 103 18 117/79 (92) 98 Orders Orders Drug Screen, Random Urine (07/30/17 18:04) Alcohol (Ethanol) (07/30/17 18:04) Psych Screen (07/30/17 18:04) Tetanus/Diphtheria Tox Adult (Tetanus/Di (07/30/17 18:30) MDM Medical Decision Making Medical Screen Exam Complete: Yes Emergency Medical Condition: Yes Medical Record Reviewed: Yes Differential Diagnosis Bipolar disorder, acute psychosis, medication noncompliance, substance-induced mood disorder, adjustment reaction. Narrative Course Mental health screening discussed with the patient. Psychiatric screen ordered. Medically cleared for psychiatric disposition. Diagnosis Primary Impression: Medical clearance for psychiatric admission Asif Olivia July 30, 2017 18:06
[2017-07-30 18:08] VITALS: BP 117/79; PULSE 103; RESP 18; TEMP 98.1; O2SAT 98
[2017-07-30] MEDS ORDERED: VIST25CA PO (18:13)
[2017-07-30] MEDS ORDERED: ZYPR20TA PO (18:13)
[2017-07-30] MEDS ORDERED: TETANUS/DIPHTHERIA TOXOID ADULT 0.5 ML VIAL IM ONE (18:30)
[2017-07-31] MEDS ORDERED: diphenhydrAMINE HCL 50 MG CAP PO ONE
[2017-07-31] MEDS ORDERED: OLANZapine 10 MG TAB PO ONE
[2017-07-31 05:22] VITALS: BP 106/58; PULSE 71; RESP 16; O2SAT 96
[2017-07-31] MEDS ORDERED: hydrOXYzine PAMOATE 25 MG CAP PO PRN (09:30)
[2017-07-31] MEDS ORDERED: ACETAMINOPHEN 325 MG TAB PO PRN (09:45)
[2017-07-31] MEDS ORDERED: LORazepam 0.5 MG TAB PO PRN (09:45)
[2017-07-31] MEDS ORDERED: MAGNESIUM HYDROXIDE SUSP 30 ML CUP PO PRN (09:45)
[2017-07-31] MEDS ORDERED: ALUMINUM/MAGNESIUM/SIMETH 30 ML CUP PO PRN (09:45)
[2017-07-31] MEDS ORDERED: LORazepam 2 MG/ML VIAL IM PRN ×2 (09:45)
[2017-07-31] MEDS: NICOTINE 21 MG/24 HR PATCH T-DERMAL SCH (12:11)
[2017-07-31] MEDS: OLANZapine 10 MG TAB PO SCH (12:12)
[2017-07-31 13:20] VITALS: BP 108/57; PULSE 88; RESP 18; TEMP 98.2; O2SAT 96
[2017-07-31] MEDS: LORazepam 1 MG TAB PO PRN (14:00)
--- NOTE | 2017-07-31 15:43 | HHI.HP ---
Provisional Diagnosis Admission Date July 31, 2017 at 09:41 [place] I. Bipolar disorder type II, opiates use disorder, in early full remission [place] II. 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 [place] III. Hypothyroidism [place] IV. Unemployed [place] V. 40 Certification of Person's Competence To Provide Express and Informed Consent I have personally examined Fanny Campos , a person being served at [facility] on, July 31, 2017 15:21. Express and informed consent means consent voluntarily given in writing, by a competent person, after sufficient explanation and disclosure of the subject matter involved to enable the person to make a knowing and willful decision without any element of force, fraud, deceit, duress, or other form of constraint or coercion. This person is 18 years of age or older, is not now known to be incompetent to consent to treatment with a guardian advocate, and does not have a health care surrogate or proxy currently making medical treatment decisions. I have found this person to be one of the following: [] Competent to provide express and informed consent, as defined above, for voluntary admission to this facility and is competent to provide express and informed consent for treatment. He/she has the consistent capacity to make well reasoned, willful, and knowing decisions concerning his or her medical or mental health treatment. The person fully and consistently understands the purpose of the admission for examination/placement and is fully capable of personally exercising all rights assured [place] Incompetent to provide express and informed consent to voluntary admission, and this is incompetent to provide express and informed consent to treatment. The person must be transferred to involuntary status and a petition for a guardian advocate filed with the Circuit Court. [x] Refusing to provide express and informed consent to voluntary admission but is competent to provide express and informed consent for treatment. The person must be discharged or transferred to involuntary status. Form shall be completed within 24 hours of a person's arrival at the receiving facility and filed in the clinical record of each person: 1. Admitted on a voluntary basis 2. Permitted to provide express and informed consent to his/her own treatment 3. Allowed to transfer from involuntary to voluntary status 4. Prior to permitting a person to consent to his or her own treatment after having been previously found incompetent to consent to treatment. History of Present Illness Capacity: Has Capacity HPI The patient is a 46-year-old woman, domiciled with her parents n [place], , but , unemployed, on SSI process, with psychiatric history of bipolar disorder, type 2 previous psychiatric hospitalizations, 3 hospitalizations here in [place] since February, documentation review, outpatient care in [facility], she is on Olanzapine 10 mg hs, she was recently switched from Risperdal 2 mg due to side effects, Vistaril 25 mg twice daily she also has history of opiate use disorder, now in early full remission, previous suicidal attempts, self cutting behavior, medical history of hypothyroidism, who presents under Noble act initially by the Police Department. According to her paperwork the patient told the police surgeon that she wanted to commit suicide by cutting herself. She recently had some sort of medication change that she felt could be increasing her suicidal thoughts. It appears that the patient was seen here on July 19 with similar complaints. She reports that she cut her left wrist today with a knife. She has superficial abrasions. Last tetanus vaccination unknown. Denies any other attempts at self-harm. No other complaints at this time. On psychiatric evaluation today the patient is guarded, oddly related, she seems to be kind of internally preoccupied, very hyperactive and anxious, she says that she has been very depressed, frustrated with her parents, but she will not elaborate about circumstances and reason for her frustration. She does says that she has been having persistent suicidal thoughts with a plan of hanging herself or cutting herself. He denies the abuse of other drugs and alcohol. The patient reports decreased concentration, energy, poor sleep at night, and she denies suicidal ideation with the plan of hanging herself or stabbing herself. She denies visual and auditory hallucinations. There is no loosening of associations ideas of reference, disorganized speech or behavior at this moment. I got collateral information from her mother, who states that the patient was recently switched from respiratory olanzapine, and since then the patient has being restless, very anxious, and she has been complaining of having persistent suicidal thoughts. She clarifies that she became very scared yesterday when the patient cut her self "because I did not think that she was able to do that". She reports that the patient has been compliant with her medications, she also has been compliant with outpatient visits. Review of Systems Constitutional: DENIES: Diaphoretic episodes, Fatigue, Fever, Weight gain, Weight loss, Chills, Dizziness, Change in appetite, Night Sweats Endocrine: DENIES: Abnorml menstrual pattern, Heat/cold intolerance, Polydipsia , Polyuria, Polyphagia Eyes: DENIES: Blurred vision, Diplopia, Eye inflammation, Eye pain, Vision loss , Photosensitivity, Double Vision Ears, nose, mouth, throat: DENIES: Tinnitus, Hearing loss, Vertigo, Nasal discharge, Oral lesions, Throat pain, Hoarseness, Ear Pain, Running Nose, Epistaxis, Sinus Pain, Toothache, Odynophagia Respiratory: DENIES: Apneas, Cough, Snoring, Wheezing, Hemoptysis, Sputum production, Shortness of breath Cardiovascular: DENIES: Chest pain, Palpitations, Syncope, Dyspnea on Exertion , PND, Lower Extremity Edema, Orthopnea, Claudication Genitourinary: DENIES: Abnormal vaginal bleeding, Dysmenorrhea, Dyspareunia, Sexual dysfunction, Urinary frequency, Urinary incontinence, Urgency, Hematuria , Dysuria, Nocturia, Vaginal discharge Musculoskeletal: DENIES: Joint pain, Muscle aches, Stiffness, Joint Swelling, Back pain, Neck pain Integumentary: DENIES: Abnormal pigmentation, Pruritus, Rash, Nail changes, Breast masses, Breast skin changes, Nipple discharge Hematologic/lymphatic: DENIES: Bruising, Lymphadenopathy Immunologic/allergic: DENIES: Eczema, Urticaria Neurologic: DENIES: Abnormal gait, Headache, Localized weakness, Paresthesias, Seizures, Speech Problems, Tremor, Poor Balance Psychiatric: COMPLAINS OF: Anxiety, Suicidal Ideation, DENIES: Confusion, Mood changes, Depression, Hallucinations, Agitation, Homicidal Ideation, Delusions Past Psych History Violence risk - self (6 mos) Increased Substance Abuse History Drugs/Alcohol past 12 months Patient denies the use of alcohol and drug Past Family Social History Coded Allergies: No Known Allergies (Verified Allergy, Unknown, 07/30/17) Reported Medications Hydroxyzine Pamoate (Vistaril) 25 Mg Cap, 25 MG PO Q6H Y for ANXIETY, CAP 0 Refills 07/30/17 Olanzapine (Zyprexa) 20 Mg Tab, 20 MG PO DAILY, #30 TAB 0 Refills 07/30/17 Discontinued Scripts Risperidone (Risperdal) 1 Mg Tab, 2 MG PO Q12HR for Mental Health for 10 Days, # 40 TAB 0 Refills Prov:Suha Catherine 06/08/17 Sertraline (Zoloft) 50 Mg Tab, 25 MG PO DAILY for Mental Health for 10 Days, #5 TAB 2 Refills Prov:Ronnie Rincon MD 05/22/17 Current Medications Medications (Trade) Dose Ordered Sig/Dilcia Route Start Time Stop Time Status Last Admin (Vistaril) 25 mg Q6H PRN PO 07/31/17 09:30 (ZyPREXA) 20 mg DAILY PO 07/31/17 09:30 07/31/17 12:12 (Ativan) 1 mg Q6H PRN PO 07/31/17 09:45 07/31/17 14:00 (Ativan Inj) 1 mg Q6H PRN IM 07/31/17 09:45 (Tylenol) 650 mg Q4H PRN PO 07/31/17 09:45 (Milk Of Magnesia Liq) 30 ml DAILY PRN PO 07/31/17 09:45 (Mag-Al Plus Susp Liq) 30 ml Q6H PRN PO 07/31/17 09:45 (Habitrol 21 Mg Patch.24 Hr) 1 patch DAILY T-DERMAL 07/31/17 10:00 07/31/17 12:11 Miscellaneous Information 1 HS T-DERMAL 07/31/17 21:00 Family Psych History No family psychiatric history Social History The patient was born and raised in [place], she lives in [facility] with her parents, she is , but , unemployed, on SSI process, her highest level of education is eighth grade Patient's Strengths (min. 2) Family support Physical Exam Patient is quite anxious, hyperactive, unable to stay still, Vital Signs Vital Signs Date Time Temp Pulse Resp B/P (MAP) Pulse Ox O2 Delivery O2 Flow Rate FiO2 07/31/17 13:20 98.2 88 18 108/57 (74) 96 07/31/17 05:22 Room Air Lab Results Test 07/30/17 18:16 07/30/17 18:20 Ethyl Alcohol Level LESS THAN 3 MG/DL Urine Opiates Screen NEG Urine Barbiturates Screen NEG Urine Amphetamines Screen NEG Urine Benzodiazepines Screen NEG Urine Cocaine Screen NEG Urine Cannabinoids Screen NEG Mental Status Examination Appearance: Appropriate Consciousness: Alert Orientation: x4 Motor Activity: Normal gait Speech: Unremarkable Language: Adequate Fund of Knowledge: Adequate Attention and Concentration: Adequate Memory: Unremarkable Mood: Sad Affect: Flat, Blunt Thought Process & Associations: Goal directed, Other ([place]) Thought Content: Appropriate Hallucination Type: None Delusion Type: None Suicidal Ideation: Yes Suicidal Plan: Yes Suicidal Intention: No Homicidal Ideation: No Homicidal Plan: No Homicidal Intention: No Insight: Poor Judgment: Poor Assessment & Plan Problem List: (1) Bipolar depression ICD Codes: F31.30 - Bipolar disorder, current episode depressed, mild or moderate severity, unspecified Assessment & Plan: On psychiatric evaluation today the patient is guarded, irritable, superficially cooperative, she does reports symptoms of depression, anhedonia, hopelessness, helplessness, poor sleep, concentration and energy, and persistent suicidal ideation with a plan of cutting herself. The patient has poor impulse control, she is very concrete and she has been recently switched from respiratory olanzapine. Due to her previous psychiatric history, previous suicidal attempts, the patient is an elevated risk of danger to self and she denies psychiatric admission for stabilization. Transfer patient to psychiatric unit. We will start the olanzapine 10 mg at bedtime, Vistaril 25 mg twice daily. I assume that the restlessness and anxiety that she presents could be related with akathisia, will order propanolol 10 mg daily. Brief supportive psychotherapy, psychoeducation and motivation provided. hydroponics worker intervention for director of social media marketing. Individual and group therapy, to coordinating a safe discharge. Will consult psychiatry for second opinion. Assessment & Plan Estimated LOS: Vj Reeves MD July 31, 2017 15:43
[2017-07-31 18:03] VITALS: BP 111/60; PULSE 90; RESP 18; TEMP 98.6; O2SAT 96
[2017-07-31] MEDS ORDERED: REMOVE OLD NICODERM (NICOTINE) PATCH T-DERMAL SCH (21:00)
[2017-08-01 06:39] VITALS: BP 91/53; PULSE 90; RESP 18; TEMP 97.9; O2SAT 98
[2017-08-01 06:50] VITALS: BP_SYST 108; BP_SYST 5; BP_DIAS 78; PULSE 86
[2017-08-01] MEDS: LORazepam 1 MG TAB PO PRN (08:34)
[2017-08-01] MEDS: OLANZapine 10 MG TAB PO SCH (08:34)
[2017-08-01] MEDS: NICOTINE 21 MG/24 HR PATCH T-DERMAL SCH (08:34)
[2017-08-01 09:14] LABS: BICARBONATE 27.2 MEQ/L (21.0-32.0); BLOOD UREA NITROGEN 16 MG/DL (7-18); CALCIUM 9.2 MG/DL (8.5-10.1); CHLORIDE 103 MEQ/L (98-107); GLOMERULAR FILTRATION RATE 91 ML/MIN (>89); GLUCOSE,RANDOM 90 MG/DL (74-106); SODIUM (NA) 139 MEQ/L (136-145)
[2017-08-01 09:16] LABS: CHOLESTEROL 222 MG/DL (120-200); TRIGLYCERIDES 145 MG/DL (42-150)
[2017-08-01 09:18] LABS: CHOLESTEROL/ HDL RATIO 4.12 RATIO; HDL CHOLESTEROL 53.8 MG/DL (40.0-60.0); LDL CHOLESTEROL 139 MG/DL (0-99)
--- NOTE | 2017-08-01 11:40 | HHI.DS ---
Psychiatry Discharge Summary Inpatient Psychiatric care?: Yes Advance Directive: Yes Mental Health AdvanceDirective: Yes Name and Number: Summer Michelle [phone] Health Care Proxy: Yes Name and Phone Number: Summer Michelle [phone] Admission Admission Date July 31, 2017 at 09:41 Admission Diagnosis: (1) Bipolar depression ICD Code: F31.30 - Bipolar disorder, current episode depressed, mild or moderate severity, unspecified Brief History The patient is a 46-year-old woman, domiciled with her parents n [place], , but , unemployed, on SSI process, with psychiatric history of bipolar disorder, type 2 previous psychiatric hospitalizations, 3 hospitalizations here in [place] since February, documentation review, outpatient care in [facility], she is on Olanzapine 10 mg hs, she was recently switched from Risperdal 2 mg due to side effects, Vistaril 25 mg twice daily she also has history of opiate use disorder, now in early full remission, previous suicidal attempts, self cutting behavior, medical history of hypothyroidism, who presents under Noble act initially by the [employer]. According to her paperwork the patient told the master police detective that she wanted to commit suicide by cutting herself. She recently had some sort of medication change that she felt could be increasing her suicidal thoughts. It appears that the patient was seen here on July 19 with similar complaints. She reports that she cut her left wrist today with a knife. She has superficial abrasions. Last tetanus vaccination unknown. Denies any other attempts at self-harm. No other complaints at this time. On psychiatric evaluation today the patient is guarded, oddly related, she seems to be kind of internally preoccupied, very hyperactive and anxious, she says that she has been very depressed, frustrated with her parents, but she will not elaborate about circumstances and reason for her frustration. She does says that she has been having persistent suicidal thoughts with a plan of hanging herself or cutting herself. He denies the abuse of other drugs and alcohol. The patient reports decreased concentration, energy, poor sleep at night, and she denies suicidal ideation with the plan of hanging herself or stabbing herself. She denies visual and auditory hallucinations. There is no loosening of associations ideas of reference, disorganized speech or behavior at this moment. I got collateral information from her mother, who states that the patient was recently switched from respiratory olanzapine, and since then the patient has being restless, very anxious, and she has been complaining of having persistent suicidal thoughts. She clarifies that she became very scared yesterday when the patient cut her self "because I did not think that she was able to do that". She reports that the patient has been compliant with her medications, she also has been compliant with outpatient visits. Tobacco Use In Past 30 Days: 5 or More Cigarettes/Day Alcohol Use: Never Hospital Course Patient seen by me with Counselor Aurelia and floor staff, chart reviewed, patient complaint medications, discussed with nurse. Patient did recognize me from a prior hospitalization about a year ago. Patient states she did have a bad day and had signs of depression but that it did not resolve. She now denies suicidality and homicidality voices or visions. She states living situation is good, she lives with her parents. She states she is compliant with medication. Thus follow-up with her [place] clinician. Denies alcohol or drug use. She denies any significant stress or issues. She denies any relationship issues at the present time. She is able contract to do no harm. She is euthymic at this time her speech rate and rhythm are within normal limits there is no pressure to her speech. At this time patient does not meet Real act criteria she is appropriate medications at home she has appointments with [place] and she has a good support group. Less I will lift [place] allow patient to be discharged herself with no Rx by me to follow-up [place] Results Blood Pressure 108 / 78 Vital Signs Date Time Temp Pulse Resp B/P (MAP) Pulse Ox O2 Delivery O2 Flow Rate FiO2 08/01/17 06:50 86 108/78 (88) 08/01/17 06:39 97.9 18 98 07/31/17 05:22 Room Air Laboratory Tests Test 07/30/17 18:16 07/30/17 18:20 08/01/17 07:34 Cholesterol Level 222 MG/DL (120-200) LDL Cholesterol 139 MG/DL (0-99) Laboratory Results Test 08/01/17 07:34 Cholesterol Level 222 MG/DL (120-200) HDL Cholesterol 53.8 MG/DL (40.0-60.0) LDL Cholesterol 139 MG/DL (0-99) Triglycerides Level 145 MG/DL (42-150) Summary of Procedures None done Pending results at discharge: No Medications # of Antipsychotic meds at D/C: 0 Approp Antipsych med options 1 - Minimum of three failed multiple trials of monotherapy. 2 - Documented plan to taper to monotherapy due to previous use of multiple meds OR cross-taper in progress at D/C. 3 - Documentation of augmentation of Clozapine. 4 - Justification other than those listed in allowable values 1-3, document here : Discharge Discharge Date: August 01, 2017 Discharge Diagnosis: (1) Bipolar depression ICD Code: F31.30 - Bipolar disorder, current episode depressed, mild or moderate severity, unspecified Status: Resolved Pt Condition on Discharge: Stable Discharge Disposition: Discharge Home Discharge Instructions Diet Instructions: As Tolerated, No Restrictions Activities you can perform: Regular-No Restrictions Scheduled Appointment: [place] Discharge Time > 30 minutes Mental Status Examination Appearance: Appropriate Consciousness: Alert Orientation: x4 Motor Activity: Normal gait Speech: Unremarkable Language: Adequate Fund of Knowledge: Adequate Attention and Concentration: Adequate Memory: Unremarkable Mood: Sad Affect: Flat, Blunt Thought Process & Associations: Goal directed, Other ([place]) Thought Content: Appropriate Hallucination Type: None Delusion Type: None Suicidal Ideation: Yes Suicidal Plan: Yes Suicidal Intention: No Homicidal Ideation: No Homicidal Plan: No Homicidal Intention: No Insight: Poor Judgment: Poor Discharge/Advance Care Plan Health Problems: (1) Bipolar depression Goals to promote your health * To prevent worsening of your condition and complications * To maintain your health at the optimal level Directions to meet your goals Take your medications as prescribed Follow your dietary instruction Follow activity as directed Keep your appointments as scheduled Take your immunizations and boosters as scheduled If your symptoms worsen call your PCP, if no PCP go to Urgent Care Center or Emergency Room For 09/10 questions related to your inpatient stay or results of tests pending at discharge, please contact Dr. Ervin Miller at Smoking is Dangerous to Your Health. Avoid second hand smoking Ervin Miller MD August 01, 2017 11:40
[2017-08-01 15:55] LABS: HEMOGLOBIN A1C 5.6 % (4.3-6.0)
== END 2017-08-01 14:10 | disposition home or self-care (01) | DRG 885 ==
LOC: NEPJ 18:00 → NEDA 07-31 09:41 → H260 07-31 13:19
PROVIDERS: ADMIT Psychiatry & Neurology Psychiatry; ATTEND Psychiatry & Neurology Psychiatry
DX: F31.31 Bipolar disorder, current episode depressed, mild (principal); R45.851 Suicidal ideations; E03.9 Hypothyroidism, unspecified; F17.210 Nicotine dependence, cigarettes, uncomplicated; F41.9 Anxiety disorder, unspecified
CPT/HCPCS: 80048; 80061; 80307; 83036; 90471; 90714; Q0163

== ENCOUNTER 2017-08-07 07:19 | Emergency (ER) | payer OTHER ==
[~2017-08-07] VITALS: Ht 160 cm; Wt 53.0 kg
[~2017-08-07 07:19] MED LIST changes: -RISP1 PO; +VIST25CA PO; -ZOLO50TA PO; +ZYPR20TA PO
[2017-08-07 07:24] VITALS: BP 140/94; PULSE 100; RESP 19; O2SAT 98
[2017-08-07] MEDS ORDERED: LORA-474 PO (07:32)
--- NOTE | 2017-08-07 07:39 | PD ---
HPI Chief Complaint: Psychiatric Symptoms Time Seen by Provider: 07:31 Travel History International Travel<30 days: No Contact w/Intl Traveler<30days: No Traveled to known affect area: No History of Present Illness HPI Patient is a 46-year-old female with history of bipolar disorder, currently taking Zyprexa, presents the emergency room for evaluation of suicidal idealizations. Patient reports that prior to coming to the emergency room, she took a knife and plans on slitting her wrists. Patient has superficial abrasions to her right wrist. Patient reports that she planned on doing this to commit suicide. Patient reports that she is depressed, she is currently lita for safety. Patient denies any use of drugs or alcohol, reports that she has tried to commit suicide in the past. Patient's tetanus is up-to- date. PFSH Past Medical History Arthritis: No Asthma: No Autoimmune Disease: No Bipolar Disorder: Yes Anxiety: Yes Depression: Yes Heart Rhythm Problems: No Cancer: No Cardiovascular Problems: No High Cholesterol: No Chemotherapy: No Chest Pain: No Congestive Heart Failure: No COPD: No Cerebrovascular Accident: No Diabetes: No Diminished Hearing: No Endocrine: Yes GERD: No Genitourinary: No Hiatal Hernia: No Immune Disorder: No Kidney Stones: No Musculoskeletal: No Neurologic: No Psychiatric: Yes (bipolar d/o, depression) Reproductive: No Respiratory: No Migraines: No Radiation Therapy: No Renal Failure: No Seizures: No Sickle Cell Disease: No Sleep Apnea: No Thyroid Disease: Yes (hyper thyroid nodules on thyroid) Ulcer: No ?: Not LMP: 07/30/16 Past Surgical History Abdominal Surgery: No AICD: No Arteriovenous Shunt: No Cardiac Surgery: No Ear Surgery: No Endocrine Surgery: No Eye Surgery: No Genitourinary Surgery: No Gynecologic Surgery: No Insulin Pump: No Joint Replacement: No Oral Surgery: No Pacemaker: No Thoracic Surgery: No Social History Alcohol Use: No Tobacco Use: Yes (1 PPD cigarettes) Substance Use: No Allergies-Medications (Allergen,Severity, Reaction): Coded Allergies: No Known Allergies (Verified Allergy, Unknown, 08/07/17) Reported Meds & Prescriptions Reported Meds & Active Scripts Active Reported Ativan (Lorazepam) 1 Mg Tab 1 Mg PO DAILY PRN Vistaril (Hydroxyzine Pamoate) 25 Mg Cap 25 Mg PO Q6H PRN Zyprexa (Olanzapine) 20 Mg Tab 20 Mg PO DAILY Review of Systems General / Constitutional: No: Fever Eyes: No: Visual changes HENT: No: Headaches Cardiovascular: No: Chest Pain or Discomfort Respiratory: No: Shortness of Breath Gastrointestinal: No: Abdominal Pain Genitourinary: No: Dysuria Musculoskeletal: No: Pain Skin: No Rash Neurologic: No: Weakness Psychiatric: Positive: Depression, Suicidal Ideations, No: Homicidal Ideation Endocrine: No: Polydipsia Hematologic/Lymphatic: No: Easy Bruising Physical Exam Narrative GENERAL: No acute distress, nontoxic SKIN: Focused skin assessment warm/dry. Patient with superficial abrasions to the left forearm HEAD: Atraumatic. Normocephalic. EYES: Pupils equal and round. No scleral icterus. No injection or drainage. ENT: No nasal bleeding or discharge. Mucous membranes pink and moist. NECK: Trachea midline. No JVD. CARDIOVASCULAR: Regular rate and rhythm. No murmur appreciated. RESPIRATORY: No accessory muscle use. Clear to auscultation. Breath sounds equal bilaterally. GASTROINTESTINAL: Abdomen soft, non-tender, nondistended. Hepatic and splenic margins not palpable. MUSCULOSKELETAL: No obvious deformities. No clubbing. No cyanosis. No edema. NEUROLOGICAL: Awake and alert. No obvious cranial nerve deficits. Motor grossly within normal limits. Normal speech. PSYCHIATRIC: Flat mood and affect; positive SI, negative HI Data Data Last Documented VS Vital Signs Date Time Temp Pulse Resp B/P (MAP) Pulse Ox O2 Delivery O2 Flow Rate FiO2 08/07/17 07:24 100 19 140/94 (109) 98 Orders Orders Complete Blood Count With Diff (08/07/17 07:31) Comprehensive Metabolic Panel (08/07/17 07:31) Thyroid Stimulating Hormone (08/07/17 07:31) Psych Screen (08/07/17 07:31) Drug Screen, Random Urine (08/07/17 07:31) Wound Care (08/07/17 07:31) ^ Apply To Wound Bed (08/07/17 07:31) Hydroxyzine Pamoate (Vistaril) (08/07/17 10:00) Olanzapine (Zyprexa) (08/07/17 10:15) Lorazepam (Ativan) (08/07/17 10:15) Labs Laboratory Tests Test 08/07/17 07:30 08/07/17 07:45 White Blood Count 10.0 TH/MM3 Red Blood Count 4.61 MIL/MM3 Hemoglobin 14.6 GM/DL Hematocrit 42.9 % Mean Corpuscular Volume 93.2 FL Mean Corpuscular Hemoglobin 31.7 PG Mean Corpuscular Hemoglobin Concent 34.0 % Red Cell Distribution Width 14.1 % Platelet Count 384 TH/MM3 Mean Platelet Volume 7.9 FL Neutrophils (%) (Auto) 65.5 % Lymphocytes (%) (Auto) 26.5 % Monocytes (%) (Auto) 6.6 % Eosinophils (%) (Auto) 1.1 % Basophils (%) (Auto) 0.3 % Neutrophils # (Auto) 6.6 TH/MM3 Lymphocytes # (Auto) 2.7 TH/MM3 Monocytes # (Auto) 0.7 TH/MM3 Eosinophils # (Auto) 0.1 TH/MM3 Basophils # (Auto) 0.0 TH/MM3 CBC Comment DIFF FINAL Differential Comment Blood Urea Nitrogen 13 MG/DL Creatinine 0.81 MG/DL Random Glucose 93 MG/DL Total Protein 7.6 GM/DL Albumin 3.7 GM/DL Calcium Level 9.1 MG/DL Alkaline Phosphatase 99 U/L Aspartate Amino Transf (AST/SGOT) 41 U/L Alanine Aminotransferase (ALT/SGPT) 78 U/L Total Bilirubin 0.2 MG/DL Sodium Level 138 MEQ/L Potassium Level 4.2 MEQ/L Chloride Level 100 MEQ/L Carbon Dioxide Level 27.8 MEQ/L Anion Gap 10 MEQ/L Estimat Glomerular Filtration Rate 77 ML/MIN Thyroid Stimulating Hormone 3rd Gen 1.020 uIU/ML Urine Opiates Screen NEG Urine Barbiturates Screen NEG Urine Amphetamines Screen NEG Urine Benzodiazepines Screen NEG Urine Cocaine Screen NEG Urine Cannabinoids Screen NEG MDM Medical Decision Making Medical Screen Exam Complete: Yes Emergency Medical Condition: Yes Medical Record Reviewed: Yes Interpretation(s) Vital Signs Date Time Temp Pulse Resp B/P (MAP) Pulse Ox O2 Delivery O2 Flow Rate FiO2 08/07/17 07:24 100 19 140/94 (109) 98 Differential Diagnosis Adjustment disorder, bipolar disorder, depression, SI Narrative Course During the course of the patients emergency department visit, the patients history, examination, and differential diagnosis were reviewed with the patient. The patient was placed on a vehicle monitor technician with oximetry and frequent blood pressure monitoring. Psychiatric screening labs were ordered, once labs have resulted, will have patient be seen by psychiatric screening. Patient is a voluntary admission. 0904 patient cleared for psychiatric evaluation at this time. 1002: Patient now request to be discharged so she can see her parents, patient reports that she is still suicidal, that is why she attempted to slit her wrists today. Patient will now be placed under Noble act for her safety as I am concerned for her well-being. Lucille Vale DO August 07, 2017 07:39
[2017-08-07 08:07] LABS: AUTOMATED NEUTROPHIL # 6.6 TH/MM3 (1.8-7.7); BASOPHIL % 0.3 % (0.0-2.0); EOSINOPHIL # 0.1 TH/MM3 (0-0.4); EOSINOPHIL % 1.1 % (0.0-4.0); HEMATOCRIT 42.9 % (35.0-46.0); HEMOGLOBIN 14.6 GM/DL (11.6-15.3); LYMPH % 26.5 % (9.0-44.0); LYMPHOCYTE # 2.7 TH/MM3 (1.0-4.8); MEAN CELL VOLUME 93.2 FL (80.0-100.0); MEAN CORPUSCULAR HEMOGLOBIN 31.7 PG (27.0-34.0); MEAN PLATELET VOLUME 7.9 FL (7.0-11.0); MONO % 6.6 % (0.0-8.0); MONOCYTE # 0.7 TH/MM3 (0-0.9); NEUT % 65.5 % (16.0-70.0); PLATELET COUNT 384 TH/MM3 (150-450); RED BLOOD COUNT 4.61 MIL/MM3 (4.00-5.30); RED CELL DISTRIBUTION WIDTH 14.1 % (11.6-17.2)
[2017-08-07 08:48] LABS: ALBUMIN 3.7 GM/DL (3.4-5.0); ALT (GPT) 78 U/L (10-53); AST (GOT) 41 U/L (15-37); BICARBONATE 27.8 MEQ/L (21.0-32.0); BLOOD UREA NITROGEN 13 MG/DL (7-18); CALCIUM 9.1 MG/DL (8.5-10.1); CHLORIDE 100 MEQ/L (98-107); CREATININE 0.81 MG/DL (0.50-1.00); GLOMERULAR FILTRATION RATE 77 ML/MIN (>89); GLUCOSE,RANDOM 93 MG/DL (74-106); SODIUM (NA) 138 MEQ/L (136-145)
[2017-08-07 08:58] LABS: ALKALINE PHOSPHATASE 99 U/L (45-117); TOTAL BILIRUBIN ADULT 0.2 MG/DL (0.2-1.0); TOTAL PROTEIN 7.6 GM/DL (6.4-8.2)
[2017-08-07] MEDS ORDERED: LORazepam 1 MG TAB PO ONE (10:15)
[2017-08-07] MEDS ORDERED: OLANZapine 10 MG TAB PO ONE (10:15)
[2017-08-07] MEDS ORDERED: ZYPR10TA PO (16:35)
[2017-08-07] MEDS ORDERED: METH5TAB4 PO (16:35)
[2017-08-07] MEDS ORDERED: BENZ0.5T PO (16:35)
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
[2017-08-07] MEDS ORDERED: HYDR50CA PO (17:06)
[2017-08-07 17:45] VITALS: BP 104/55; PULSE 74; RESP 16; O2SAT 97
--- NOTE | 2017-08-07 17:51 | PD ---
Physical Exam Date Seen by Provider: August 07, 2017 Time Seen by Provider: 17:49 Narrative 46-year-old female previously [facility] acted and medically cleared for psychiatric evaluation, has been seen by psychiatric staff and deemed to be psychiatrically stable for transfer to the [facility] for further psychiatric treatment. Patient remains medically stable at this time for transfer. Follow- up will be based on psychiatric note. Data Data Last Documented VS Vital Signs Date Time Temp Pulse Resp B/P (MAP) Pulse Ox O2 Delivery O2 Flow Rate FiO2 08/07/17 07:24 100 19 140/94 (109) 98 Orders Orders Complete Blood Count With Diff (08/07/17 07:31) Comprehensive Metabolic Panel (08/07/17 07:31) Thyroid Stimulating Hormone (08/07/17 07:31) Psych Screen (08/07/17 07:31) Drug Screen, Random Urine (08/07/17 07:31) Wound Care (08/07/17 07:31) ^ Apply To Wound Bed (08/07/17 07:31) Hydroxyzine Pamoate (Vistaril) (08/07/17 10:00) Olanzapine (Zyprexa) (08/07/17 10:15) Lorazepam (Ativan) (08/07/17 10:15) Diet Regular Basic (08/07/17 Lunch) Diet Regular Basic (08/07/17 Dinner) Labs Laboratory Tests Test 08/07/17 07:30 08/07/17 07:45 White Blood Count 10.0 TH/MM3 Red Blood Count 4.61 MIL/MM3 Hemoglobin 14.6 GM/DL Hematocrit 42.9 % Mean Corpuscular Volume 93.2 FL Mean Corpuscular Hemoglobin 31.7 PG Mean Corpuscular Hemoglobin Concent 34.0 % Red Cell Distribution Width 14.1 % Platelet Count 384 TH/MM3 Mean Platelet Volume 7.9 FL Neutrophils (%) (Auto) 65.5 % Lymphocytes (%) (Auto) 26.5 % Monocytes (%) (Auto) 6.6 % Eosinophils (%) (Auto) 1.1 % Basophils (%) (Auto) 0.3 % Neutrophils # (Auto) 6.6 TH/MM3 Lymphocytes # (Auto) 2.7 TH/MM3 Monocytes # (Auto) 0.7 TH/MM3 Eosinophils # (Auto) 0.1 TH/MM3 Basophils # (Auto) 0.0 TH/MM3 CBC Comment DIFF FINAL Differential Comment Blood Urea Nitrogen 13 MG/DL Creatinine 0.81 MG/DL Random Glucose 93 MG/DL Total Protein 7.6 GM/DL Albumin 3.7 GM/DL Calcium Level 9.1 MG/DL Alkaline Phosphatase 99 U/L Aspartate Amino Transf (AST/SGOT) 41 U/L Alanine Aminotransferase (ALT/SGPT) 78 U/L Total Bilirubin 0.2 MG/DL Sodium Level 138 MEQ/L Potassium Level 4.2 MEQ/L Chloride Level 100 MEQ/L Carbon Dioxide Level 27.8 MEQ/L Anion Gap 10 MEQ/L Estimat Glomerular Filtration Rate 77 ML/MIN Thyroid Stimulating Hormone 3rd Gen 1.020 uIU/ML Urine Opiates Screen NEG Urine Barbiturates Screen NEG Urine Amphetamines Screen NEG Urine Benzodiazepines Screen NEG Urine Cocaine Screen NEG Urine Cannabinoids Screen NEG MDM Medical Record Reviewed: Yes Supervised Visit with MAGY: Yes Narrative Course 46-year-old female previously Noble acted and medically cleared for psychiatric evaluation, has been seen by psychiatric staff and deemed to be psychiatrically stable for transfer to the [facility] for further psychiatric treatment. Patient remains medically stable at this time for transfer. Follow- up will be based on psychiatric note. Diagnosis Primary Impression: Adjustment disorder with depressed mood Patient Instructions: General Instructions Disposition: 65 DISC TO PSYCH CARE FACILITY Condition: Stable Rainer Moses August 07, 2017 17:51
[2017-08-07 18:49] VITALS: BP 136/76; PULSE 68; RESP 20; TEMP 97.2; O2SAT 98
== END 2017-08-07 19:10 ==
LOC: NEPE 07:19 → NEPJ 19:10
DX: F43.21 Adjustment disorder with depressed mood (principal); F17.210 Nicotine dependence, cigarettes, uncomplicated; F31.9 Bipolar disorder, unspecified; Z79.899 Other long term (current) drug therapy
CPT/HCPCS: 80053; 80307; 84443; 85025; 99285